=== PATIENT | female | born 1960 | race Caucasian/White ===

== ENCOUNTER 2016-10-22 12:35 | Emergency (ER) | payer SELFPAY ==
[~2016-10-22] VITALS: Ht 170.2 cm; Wt 62.0 kg
[~2016-10-22 12:35] MED LIST: CIPR-9 PO; DULO1CAP2 PO; ESTR1TAB12 PO; HYDR-2768 PO; LISI-366 PO; PRAZ2 PO; TOPA100T8 PO; VITA50TA PO; ZOVI800T13 PO
[2016-10-22 13:02] VITALS: BP 128/81; PULSE 98; RESP 18; TEMP 97.2; O2SAT 95
[2016-10-22 13:47] LABS: AUTOMATED NEUTROPHIL # 2.6 TH/MM3 (1.8-7.7); BASOPHIL % 0.8 % (0.0-2.0); HEMATOCRIT 36.5 % (35.0-46.0); HEMO FLAGS DIFF FINAL; LYMPH % 42.9 % (9.0-44.0); LYMPHOCYTE # 2.1 TH/MM3 (1.0-4.8); MEAN CELL VOLUME 81.1 FL (80.0-100.0); MEAN CORPUSCULAR HEMOGLOBIN 26.6 PG (27.0-34.0); MEAN CORPUSCULAR HGB CONC 32.8 % (32.0-36.0); MONO % 2.8 % (0.0-8.0); NEUT % 53.5 % (16.0-70.0); PLATELET COUNT 234 TH/MM3 (150-450); RED CELL DISTRIBUTION WIDTH 17.6 % (11.6-17.2); WHITE BLOOD COUNT 4.9 TH/MM3 (4.0-11.0)
[2016-10-22 14:04] LABS: ANION GAP 14 MEQ/L (5-15); AST (GOT) 30 U/L (15-37); BLOOD UREA NITROGEN 12 MG/DL (7-18); CHLORIDE 101 MEQ/L (98-107); GLOMERULAR FILTRATION RATE 124 ML/MIN (>89); POTASSIUM 3.8 MEQ/L (3.5-5.1); SODIUM (NA) 137 MEQ/L (136-145)
[2016-10-22 14:10] LABS: ACETAMINOPHEN LESS THAN 2.0 MCG/ML (10.0-30.0); ALKALINE PHOSPHATASE 82 U/L (45-117); ALT (GPT) 23 U/L (10-53); TOTAL BILIRUBIN ADULT 0.5 MG/DL (0.2-1.0)
[2016-10-22] MEDS ORDERED: SODIUM CHLORIDE 0.9% FLUSH 10 ML FLUSH IV FLUSH PRN (14:30)
--- NOTE | 2016-10-22 14:31 | PD ---
HPI Chief Complaint: OD/ Ingestion Time Seen by Provider: 14:28 Travel History International Travel<30 days: No Contact w/Intl Traveler<30days: No Traveled to known affect area: No History of Present Illness HPI Patient comes in emergency Department after reportedly taking approximately 20 Xanax 0.5 mg. Patient is not forthcoming as to why she did this. When asked if she was trying to hurt herself patient states "not really". Patient denies any complaints or concerns. Denies any chest pain, shortness breath, nausea, vomiting, abdominal pain, or headaches. PFSH Past Medical History Arthritis: No Asthma: No Autoimmune Disease: No Blood Disorders: No Anxiety: Yes Depression: Yes Heart Rhythm Problems: No Cancer: No Cardiac Catheterization: Yes (2009) Cardiovascular Problems: Yes (HBP) High Cholesterol: No Chemotherapy: No Chest Pain: No Congestive Heart Failure: No COPD: No Cerebrovascular Accident: No Diabetes: No Diminished Hearing: No Endocrine: No Gastrointestinal Disorders: No GERD: No Glaucoma: No Genitourinary: No Headaches: No Hepatitis: No Hiatal Hernia: No Hypertension: Yes Immune Disorder: No Implanted Vascular Access Dvce: Yes Kidney Stones: No Musculoskeletal: No Neurologic: No Psychiatric: No Reproductive: No Respiratory: No Immunizations Current: Yes Migraines: No Myocardial Infarction: No Radiation Therapy: No Seizures: No Sickle Cell Disease: No Sleep Apnea: No Thyroid Disease: No Ulcer: No Menopausal: Yes : 3 Para: 3 Past Surgical History Abdominal Surgery: No AICD: No Appendectomy: Yes Arteriovenous Shunt: No Body Medical Devices: TITANIUM DEVICE RT. SHOULDER Cardiac Surgery: No Cholecystectomy: No Coronary Artery Bypass Graft: No Ear Surgery: No Endocrine Surgery: No Eye Surgery: No Genitourinary Surgery: No Gynecologic Surgery: Yes (hysterectomy) Hysterectomy: Yes Insulin Pump: No Joint Replacement: No Oral Surgery: No Pacemaker: No Thoracic Surgery: No Tonsillectomy: Yes Other Surgery: Yes (TITANIUM DEVICE R SHOULDER, PAH) Social History Alcohol Use: Yes (DAILY 1 QUART VODKA) Tobacco Use: No Substance Use: No Allergies-Medications (Allergen,Severity, Reaction): Coded Allergies: No Known Allergies (Verified , 10/22/16) Reported Meds & Prescriptions Reported Meds & Active Scripts Active Review of Systems ROS Limitations: Uncooperative Except as stated in HPI: all other systems reviewed are Neg Physical Exam Exam Limitations: Uncooperative Narrative GENERAL: Well-developed, overly nourished, in no acute distress, and non-ill appearing. SKIN: Focused skin assessment warm and dry. HEAD: Atraumatic. Normocephalic. EYES: Pupils equal and round. EOMI. No scleral icterus. No injection or drainage. ENT: No nasal bleeding or discharge. Mucous membranes pink and moist. NECK: Trachea midline. Supple. No nuclear rigidity. CARDIOVASCULAR: Regular rate and rhythm. No murmur appreciated. RESPIRATORY: No accessory muscle use. No respiratory distress. Clear to auscultation. Breath sounds equal bilaterally. GASTROINTESTINAL: Abdomen soft, non-tender, nondistended. Hepatic and splenic margins not palpable. Normal bowel sounds 4. No pulsatile mass. MUSCULOSKELETAL: No obvious deformities. No clubbing. No cyanosis. No edema. Full range of motion. NEUROLOGICAL: Awake and alert. No obvious cranial nerve deficits. Motor grossly within normal limits. Normal speech. PSYCHIATRIC: Appropriate mood and affect; insight and judgment normal. Data Data Last Documented VS Vital Signs Date Time Temp Pulse Resp B/P Pulse Ox O2 Delivery O2 Flow Rate FiO2 10/23/16 06:22 75 18 167/75 95 Room Air 10/22/16 15:16 2 10/22/16 13:02 97.2 Orders Complete Blood Count With Diff (10/22/16 13:24) Comprehensive Metabolic Panel (10/22/16 13:24) Psych Screen (10/22/16 13:24) Drug Screen, Random Urine (10/22/16 13:24) Salicylates (Aspirin) (10/22/16 13:24) Tylenol (Acetaminophen) (10/22/16 13:24) Electrocardiogram (10/22/16 ) Ct Brain W/O Iv Contrast(Rout) (10/22/16 ) Ct Cerv Spine W/O Contrast (10/22/16 ) Iv Access Insert/Monitor (10/22/16 14:26) Ecg Monitoring (10/22/16 14:26) Oximetry (10/22/16 14:26) Sodium Chloride 0.9% Flush (Ns Flush) (10/22/16 14:30) Call Poison Control (10/22/16 14:28) Alcohol (Ethanol) (10/22/16 15:10) Restraints Non-Violent AGNES.Q3H (10/22/16 17:29) Chlordiazepoxide (Librium) (10/22/16 17:45) Diet Regular Basic (10/23/16 Breakfast) Diet Regular Basic (10/23/16 Lunch) Labs Laboratory Tests Test 10/22/16 10/22/16 13:30 23:30 White Blood Count 4.9 TH/MM3 Red Blood Count 4.50 MIL/MM3 Hemoglobin 12.0 GM/DL Hematocrit 36.5 % Mean Corpuscular Volume 81.1 FL Mean Corpuscular Hemoglobin 26.6 PG Mean Corpuscular Hemoglobin 32.8 % Concent Red Cell Distribution Width 17.6 % Platelet Count 234 TH/MM3 Mean Platelet Volume 6.6 FL Neutrophils (%) (Auto) 53.5 % Lymphocytes (%) (Auto) 42.9 % Monocytes (%) (Auto) 2.8 % Eosinophils (%) (Auto) 0.0 % Basophils (%) (Auto) 0.8 % Neutrophils # (Auto) 2.6 TH/MM3 Lymphocytes # (Auto) 2.1 TH/MM3 Monocytes # (Auto) 0.1 TH/MM3 Eosinophils # (Auto) 0.0 TH/MM3 Basophils # (Auto) 0.0 TH/MM3 CBC Comment DIFF FINAL Differential Comment Sodium Level 137 MEQ/L Potassium Level 3.8 MEQ/L Chloride Level 101 MEQ/L Carbon Dioxide Level 22.0 MEQ/L Anion Gap 14 MEQ/L Blood Urea Nitrogen 12 MG/DL Creatinine 0.51 MG/DL Estimat Glomerular Filtration 124 ML/MIN Rate Random Glucose 67 MG/DL Calcium Level 8.2 MG/DL Total Bilirubin 0.5 MG/DL Aspartate Amino Transf 30 U/L (AST/SGOT) Alanine Aminotransferase 23 U/L (ALT/SGPT) Alkaline Phosphatase 82 U/L Total Protein 7.0 GM/DL Albumin 3.6 GM/DL Acetaminophen Level LESS THAN 2.0 MCG/ML Ethyl Alcohol Level 145 MG/DL Urine Opiates Screen NEG Urine Barbiturates Screen NEG Urine Amphetamines Screen NEG Urine Benzodiazepines Screen POS Urine Cocaine Screen NEG Urine Cannabinoids Screen NEG Salicylates Level LESS THAN 1.7 MG/DL MDM Medical Decision Making Medical Screen Exam Complete: Yes Emergency Medical Condition: Yes Interpretation(s) EKG reviewed by Dr. Stout. Shows sinus rhythm with ventricular rate of 93. No STEMI. Differential Diagnosis Homicidal, suicidal, depression, electrolyte abnormality, other Narrative Course Poison control was contacted by RN recommendations are checking labs and monitoring patient in the ER for 6 hours. Due to patient's intentional overdose and history of suicidal ideations along with alcohol abuse patient was placed under a Carvajal act. 1730 re-evaluated patient with Dr. Stout, patient is more alert and now becoming tremulous. Dr. Stout recommends giving patient Librium. Patient was seen and examined. Labs were obtained and reviewed with the exception of urine drug screen. Patient medically cleared for further treatment and evaluation by psych. Final disposition per psych. Diagnosis Primary Impression: Overdose Qualified Code: T50.902A - Overdose, intentional self-harm, initial encounter Additional Impression: Alcohol abuse Eric Isaac Oct 22, 2016 14:30
[2016-10-22 14:52] VITALS: RESP 16; O2SAT 99
[2016-10-22 15:16] VITALS: BP 127/78; PULSE 91; RESP 16; O2SAT 99
--- NOTE | 2016-10-22 15:22 | RADRPT ---
EXAM DATE/TIME: 10/22/2016 15:08 [facility] COMPARISON: CT BRAIN W/O CONTRAST, March 29, 2016, 15:26. INDICATIONS : Possible fall today. RADIATION DOSE: 48.47 CTDIvol (mGy) MEDICAL HISTORY : Hypertension. SURGICAL HISTORY : Hysterectomy. Tonsillectomy. ENCOUNTER: Initial ACUITY: 1 day PAIN SCALE: 0/10 LOCATION: Bilateral head TECHNIQUE: Multiple contiguous axial images were obtained of the head. Using automated exposure control and adj ustment of the mA and/or kV according to patient size, radiation dose was kept as low as reasonably a chievable to obtain optimal diagnostic quality images. FINDINGS: There is no evidence for intracranial hemorrhage, mass effect, mass lesions, edema, or extra-axial fl uid collections. The visualized bony structures appear intact. The ventricles are normal size for t he patient's age. There are no signs of acute infarction for technique. IMPRESSION: Unremarkable study. Chana Lindsay MD on October 22, 2016 at 15:19 Board Certified Radiologist. This report was verified electronically.
--- NOTE | 2016-10-22 15:34 | RADRPT ---
EXAM DATE/TIME: 10/22/2016 15:08 [facility] COMPARISON: No previous studies available for comparison. INDICATIONS : Possible fall today. RADIATION DOSE: 42.83 CTDIvol (mGy) MEDICAL HISTORY : Hypertension. SURGICAL HISTORY : Hysterectomy. Tonsillectomy. ENCOUNTER: Initial ACUITY: 1 day PAIN SCALE: 0/10 LOCATION: Bilateral neck TECHNIQUE: Volumetric scanning of the cervical spine was performed. Multiplanar reconstructions i n the sagittal, coronal and oblique axial planes were performed. Using automated exposure control a nd adjustment of the mA and/or kV according to patient size, radiation dose was kept as low as reason ably achievable to obtain optimal diagnostic quality images. FINDINGS: Alignment: Craniocervical and cervical vertebral body alignment are intact without evidence of significant listh esis. Osseous structures and facet joints: Vertebral body height is well-maintained. There is no evidence of compression deformity. Posterior el ements are intact without evidence of acute fracture or subluxation. Mild facet arthropathy is noted. Intervertebral disc spaces: Mild degenerative disc disease with marginal spondylosis is noted. There is moderate disc space narro wing with posterior disc osteophyte complex at C5-6. No focal soft tissue abnormalities. Neurologic structures: Intact without evidence of spinal cord compression or significant foraminal encroachment. CONCLUSION: Degenerative disc disease with spondylosis. No evidence of acute bony or soft tissue trauma. Ashish Ramos MD on October 22, 2016 at 15:26 Board Certified Radiologist. This report was verified electronically.
[2016-10-22 17:34] VITALS: BP 137/89; PULSE 96; RESP 18; O2SAT 97
--- NOTE | 2016-10-22 18:33 | PD ---
Data Data Last Documented VS Vital Signs Date Time Temp Pulse Resp B/P Pulse Ox O2 Delivery O2 Flow Rate FiO2 10/22/16 17:34 96 18 137/89 97 Room Air 10/22/16 15:16 2 10/22/16 13:02 97.2 Orders Complete Blood Count With Diff (10/22/16 13:24) Comprehensive Metabolic Panel (10/22/16 13:24) Psych Screen (10/22/16 13:24) Drug Screen, Random Urine (10/22/16 13:24) Salicylates (Aspirin) (10/22/16 13:24) Tylenol (Acetaminophen) (10/22/16 13:24) Electrocardiogram (10/22/16 ) Ct Brain W/O Iv Contrast(Rout) (10/22/16 ) Ct Cerv Spine W/O Contrast (10/22/16 ) Iv Access Insert/Monitor (10/22/16 14:26) Ecg Monitoring (10/22/16 14:26) Oximetry (10/22/16 14:26) Sodium Chloride 0.9% Flush (Ns Flush) (10/22/16 14:30) Call Poison Control (10/22/16 14:28) Alcohol (Ethanol) (10/22/16 15:10) Restraints Non-Violent AGNES.Q3H (10/22/16 17:29) Chlordiazepoxide (Librium) (10/22/16 17:45) Labs Laboratory Tests Test 10/22/16 13:30 White Blood Count 4.9 TH/MM3 Red Blood Count 4.50 MIL/MM3 Hemoglobin 12.0 GM/DL Hematocrit 36.5 % Mean Corpuscular Volume 81.1 FL Mean Corpuscular Hemoglobin 26.6 PG Mean Corpuscular Hemoglobin 32.8 % Concent Red Cell Distribution Width 17.6 % Platelet Count 234 TH/MM3 Mean Platelet Volume 6.6 FL Neutrophils (%) (Auto) 53.5 % Lymphocytes (%) (Auto) 42.9 % Monocytes (%) (Auto) 2.8 % Eosinophils (%) (Auto) 0.0 % Basophils (%) (Auto) 0.8 % Neutrophils # (Auto) 2.6 TH/MM3 Lymphocytes # (Auto) 2.1 TH/MM3 Monocytes # (Auto) 0.1 TH/MM3 Eosinophils # (Auto) 0.0 TH/MM3 Basophils # (Auto) 0.0 TH/MM3 CBC Comment DIFF FINAL Differential Comment Sodium Level 137 MEQ/L Potassium Level 3.8 MEQ/L Chloride Level 101 MEQ/L Carbon Dioxide Level 22.0 MEQ/L Anion Gap 14 MEQ/L Blood Urea Nitrogen 12 MG/DL Creatinine 0.51 MG/DL Estimat Glomerular Filtration 124 ML/MIN Rate Random Glucose 67 MG/DL Calcium Level 8.2 MG/DL Total Bilirubin 0.5 MG/DL Aspartate Amino Transf 30 U/L (AST/SGOT) Alanine Aminotransferase 23 U/L (ALT/SGPT) Alkaline Phosphatase 82 U/L Total Protein 7.0 GM/DL Albumin 3.6 GM/DL Acetaminophen Level LESS THAN 2.0 MCG/ML Ethyl Alcohol Level 145 MG/DL MDM Supervised Visit with SHANTELLE: Yes Narrative Course The history, exam, and medical decision-making in the associated midlevel provider note were completed with my assistance. I reviewed and agree with the findings presented. I attest that I had a [id number] encounter with the patient on the same day, and personally performed and documented my assessment and findings in the medical record. *My assessment and Findings: This is a 56-year-old female who has a history of depression, chronic alcoholism and benzodiazepine abuse who presents to the emergency department having taken 20 .5 mg Xanax tablets prior to arrival. We are really know the circumstances of how this was discovered. Patient was placed under a Carvajal act. Labs were all reassuring. She will be monitored until cleared in the emergency department and transferred to psychiatry. Diagnosis Primary Impression: Overdose Qualified Code: T50.902A - Overdose, intentional self-harm, initial encounter Additional Impression: Alcohol abuse Desire Stout MD Oct 22, 2016 18:33
[2016-10-22 19:26] VITALS: BP 146/87; PULSE 90; RESP 20; O2SAT 96
--- NOTE | 2016-10-22 19:32 | EKG ---
Date Performed: 10/22/2016 Time Performed: 15:54:01 PTAGE: 56 years EKG: Sinus rhythm POSSIBLE LEFT ATRIAL ENLARGEMENT INCOMPLETE RIGHT BUNDLE BRANCH BLOCK BORDERLINE ECG INTERPRETATION BASED ON A DEFAULT AGE OF 38 YEARS COMPARED TO PRIOR ELECTROCARDIOGRAM, Incomplete RIGHT bundle branc h block is present. PREVIOUS TRACING : 12/27/2015 10.31 DOCTOR: Derick Bray Interpretating Date/Time 10/22/2016 19:32:23
[2016-10-22 23:50] LABS: AMPHETAMINE, URINE NEG (NEG); BARBITURATES, URINE NEG (NEG); COCAINE, URINE NEG (NEG)
[2016-10-23] MEDS: chlordiazePOXIDE 25 MG CAP PO PRN ×2 (00:15→06:26)
[2016-10-23 02:15] VITALS: BP 150/84; PULSE 98; RESP 18; O2SAT 98
[2016-10-23 06:22] VITALS: BP 167/75; PULSE 75; RESP 18; O2SAT 95
[2016-10-23] MEDS ORDERED: LORazepam 2 MG TAB PO PRN (11:00)
[2016-10-23] MEDS ORDERED: SODIUM CHLOR 0.9% 1000 ML INJ 1,000 ML IV ONE (11:00)
[2016-10-23] MEDS ORDERED: LORazepam 2 MG/ML VIAL IV PUSH PRN ×4 (11:00)
[2016-10-23] MEDS ORDERED: LORazepam 1 MG TAB PO PRN (11:00)
[2016-10-23] MEDS ORDERED: FLUMAZENIL 0.5 MG/5 ML VIAL IV PUSH PRN (11:00)
[2016-10-23 12:19] VITALS: BP 125/67; PULSE 81; RESP 17; O2SAT 97
--- NOTE | 2016-10-23 13:21 | MB ---
cc: RAYMOND MAY DATE OF CONSULTATION 10/23/2016 PHYSICIAN REQUESTING CONSULTATION Emergency Department. REASON FOR CONSULTATION Carvajal Act. HISTORY OF PRESENT ILLNESS Ms. Rosen is a 56-year-old female with a reported history of depression and anxiety as well as alcohol use issues who presented voluntarily after taking ~20 Xanax 0.5 mg tablets in an overdose. The patient's urine toxicology on presentation here was positive only for benzodiazepines. Her alcohol level was elevated at 145. Reviewing the electronic medical record, I note that the patient was admitted most recently under Dr. Soto in June of 2016, although it looks like I did the discharge summary at that time. The patient is seen and examined, Chart reviewed. Case discussed with nursing staff. On my examination today, the patient presents as dysphoric. She is somewhat tearful at times. She says that she has been under a lot of stress. Apparently, her mother is terminally ill and she is quite distressed about this. She denies low mood, but appears fairly anhedonic. She feels overwhelmed. She says that the overdose was impulsive . She denies any ongoing suicidal ideation and says that she wants to live for her family but could not articulate an explanation for what has changed in her circumstance that might prevent her from engaging in ongoing self-injury. No hypomanic or manic symptoms. She denies any audiovisual hallucinations and I can elicit no delusional beliefs. The remainder of the psychiatric ROS is negative. PAST PSYCHIATRIC HISTORY The patient reports psychiatric diagnoses as noted above. She is not currently under the care of a psychiatrist or psychotherapist but is prescribed Cymbalta and Xanax by her primary care doctor. She reports that her most recent psychiatric admission was here in June. She denies a history of previous suicide attempts. FAMILY HISTORY The patient denies any family history of mental illness. CHEMICAL DEPENDENCY HISTORY The patient tends to minimize her alcohol use. She says that she is not a daily drinker. She denies any history of blackouts, DTs or seizures. Reviewing previous toxicology screens, I see that her alcohol level has been significantly elevated since 2007 with only one undetectable level. SOCIAL HISTORY The patient reports that she has been staying with her mother who is terminally ill. She is with three children. 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 She has a twelfth grade education. Denies any or legal history. PAST MEDICAL HISTORY The patient denies any medical issues. REVIEW OF SYSTEMS The patient complains of some tremor but no reported headache, vision or hearing changes, chest pain, shortness of breath, bowel or bladder issues. No other physical complaints. PHYSICAL EXAMINATION VITAL SIGNS: Temperature is 97.2, pulse 75, respirations 18, blood pressure 167/75, pulse oximetry 95% on room air. Physical examination completed by the ED provider. On my examination today, the patient appears to be somewhat disheveled but otherwise well-developed and in no acute physical distress. She is somewhat tremulous but there is no diaphoresis or mydriasis or other signs alcohol withdrawal. No other motor abnormalities noted. LABORATORIES REVIEWED CBC unremarkable. CMP significant for mildly decreased glucose at 67. Toxicology positive for benzos. Alcohol level 145. MENTAL STATUS EXAM The patient is in hospital gown. She is somewhat disheveled but appears to be maintaining her basic hygiene. She is awake and alert and oriented to person and hospital at least. No evidence of delirium at this time. Motor exam as above. Speech is somewhat slow with increased speech latency. Language and fund of knowledge seem average. Mood is reportedly fair but affect is restricted and dysphoric. Thought process slowed but linear. No loosening of associations. No evident delusions. Denies audiovisual hallucinations. Denies ongoing suicidal ideation but it is unclear that the patient is reliable to contract for safety in her present state. No homicidal ideation. Insight and judgment seem poor. 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 This is a 56-year-old female with psychiatric history as detailed above who presented following an overdose of Xanax in conjunction with alcohol. She was placed under Carvajal Act by the ED provider. On my examination today, the patient presents as fairly dysphoric. She tends to minimize her alcohol use and also minimize the circumstances of the overdose. I suspect that the patient is experiencing an underlying mood disorder, perhaps alcohol-induced. I am concerned that there are enough ongoing acute risk factors for self-harm, that the patient is currently at elevated risk for ongoing self injury. I will leave the Carvajal Act in place. The ED provider has provided the patient with Librium as needed for any withdrawal. The patient will be retained in the [facility] under the Carvajal Act with plan for transfer to [facility] once a bed is available. Case discussed with RN in the [facility]. Thank you very much for this consultation. Raymond May DC/EDWAR /10:44 AM /12:50 PM SHARAD
[2016-10-23 17:00] VITALS: BP 168/92; PULSE 88; RESP 16; O2SAT 100
== END 2016-10-23 17:31 ==
LOC: NEPE 12:35 → NEDAMB 10-23 17:31
DX: T42.4X4A Poisoning by benzodiazepines, undetermined, initial encounter (principal); F41.8 Other specified anxiety disorders; I10 Essential (primary) hypertension; F10.10 Alcohol abuse, uncomplicated; F19.90 Other psychoactive substance use, unspecified, uncomplicated; R94.31 Abnormal electrocardiogram [ECG] [EKG]; Y90.6 Blood alcohol level of 120-199 mg/100 ml
CPT/HCPCS: 70450; 72125; 80053; 80307; 85025; 93005; 99285; J7030

== ENCOUNTER 2017-02-26 16:11 | Observation (INO) | payer MEDICARE, OTHER ==
[~2017-02-26] VITALS: Ht 167.6 cm; Wt 72.0 kg
[2017-02-26 16:23] VITALS: BP 132/89; PULSE 122; RESP 18; TEMP 98.4; O2SAT 98
[2017-02-26 16:25] VITALS: RESP 18; O2SAT 98
--- NOTE | 2017-02-26 16:25 | PD ---
HPI Chief Complaint: BA Time Seen by Provider: 16:23 Travel History International Travel<30 days: No Contact w/Intl Traveler<30days: No Traveled to known affect area: No History of Present Illness HPI 56-year-old female with history of hypertension, depression, anxiety, presents to emergency department today after a Carvajal act for attempted suicide by overdose. Patient allegedly contacted the suicide hotline pain she was going to commit suicide. When [facility] arrived, they found a bottle of bupropion at bedside and a bottle of wine. Patient was tearful. Here she is tearful, begging us to "let her ." Patient states she has no family, that they have all and she has been very depressed since her mother . She does not know how many pills she took but states "handfuls." Denies any other symptoms at this time. PFSH Past Medical History Arthritis: No Asthma: No Autoimmune Disease: No Blood Disorders: No Anxiety: Yes Depression: Yes Heart Rhythm Problems: No Cancer: No Cardiac Catheterization: Yes (2009) Cardiovascular Problems: Yes (HBP) High Cholesterol: No Chemotherapy: No Chest Pain: No Congestive Heart Failure: No COPD: No Cerebrovascular Accident: No Diabetes: No Diminished Hearing: No Endocrine: No Gastrointestinal Disorders: No GERD: No Glaucoma: No Genitourinary: No Headaches: No Hepatitis: No Hiatal Hernia: No Hypertension: Yes Immune Disorder: No Implanted Vascular Access Dvce: Yes Kidney Stones: No Musculoskeletal: No Neurologic: No Psychiatric: No Reproductive: No Respiratory: No Immunizations Current: Yes Migraines: No Myocardial Infarction: No Radiation Therapy: No Seizures: No Sickle Cell Disease: No Sleep Apnea: No Thyroid Disease: No Ulcer: No Menopausal: Yes : 3 Para: 3 Past Surgical History Abdominal Surgery: No AICD: No Appendectomy: Yes Arteriovenous Shunt: No Body Medical Devices: TITANIUM DEVICE RT. SHOULDER Cardiac Surgery: No Cholecystectomy: No Coronary Artery Bypass Graft: No Ear Surgery: No Endocrine Surgery: No Eye Surgery: No Genitourinary Surgery: No Gynecologic Surgery: Yes (hysterectomy) Hysterectomy: Yes Insulin Pump: No Joint Replacement: No Oral Surgery: No Pacemaker: No Thoracic Surgery: No Tonsillectomy: Yes Other Surgery: Yes (TITANIUM DEVICE R SHOULDER, PAH) Social History Alcohol Use: Yes (DAILY 1 QUART VODKA) Tobacco Use: No Substance Use: Yes Allergies-Medications (Allergen,Severity, Reaction): Coded Allergies: No Known Allergies (Verified , 02/26/17) Reported Meds & Prescriptions Reported Meds & Active Scripts Active Reported Buspirone (Buspirone HCl) 5 Mg Tab 5 Mg PO BID Trazodone (Trazodone HCl) 100 Mg Tablet 100 Mg PO HS Xanax (Alprazolam) 0.5 Mg Tab 0.5 Mg PO BID Neurontin (Gabapentin) 400 Mg Cap 400 Mg PO BID Estradiol 0.5 Mg Tab 0.5 Mg PO DAILY Mobic (Meloxicam) 15 Mg Tab 15 Mg PO DAILY Cymbalta DR (Duloxetine HCl) 60 Mg Capdr 60 Mg PO BID Hydrochlorothiazide 25 Mg Tab 25 Mg PO DAILY Lisinopril 40 Mg Tab 40 Mg PO DAILY Review of Systems ROS Limitations: Intoxication, Poor Historian Except as stated in HPI: all other systems reviewed are Neg Physical Exam Exam Limitations: Intoxication Narrative GENERAL: Disheveled appearing female patient, tearful, but in no acute distress. SKIN: Focused skin assessment warm/dry. HEAD: Atraumatic. Normocephalic. EYES: Pupils equal and round. No scleral icterus. No injection or drainage. ENT: No nasal bleeding or discharge. Mucous membranes pink and moist. NECK: Trachea midline. No JVD. CARDIOVASCULAR: Tachycardia rate and rhythm. No murmur appreciated. RESPIRATORY: No accessory muscle use. Clear to auscultation. Breath sounds equal bilaterally. GASTROINTESTINAL: Abdomen soft, non-tender, nondistended. Hepatic and splenic margins not palpable. MUSCULOSKELETAL: No obvious deformities. No clubbing. No cyanosis. No edema. NEUROLOGICAL: Awake and alert. I'm unable to accurately assess cranial nerve symptoms time. Patient moves all cherries. Slurred speech. Data Data Last Documented VS Vital Signs Date Time Temp Pulse Resp B/P (MAP) Pulse Ox O2 Delivery O2 Flow Rate FiO2 02/26/17 17:52 97.8 118 17 126/81 (96) 98 Room Air Orders Orders Complete Blood Count With Diff (02/26/17 16:24) Comprehensive Metabolic Panel (02/26/17 16:24) Urinalysis - C+S If Indicated (02/26/17 16:24) Electrocardiogram (02/26/17 16:24) Oximetry (02/26/17 16:24) Iv Access Insert/Monitor (02/26/17 16:24) Ecg Monitoring (02/26/17 16:24) Cath For Specimen (02/26/17 16:24) Psych Screen (02/26/17 16:24) Lorazepam Inj (Ativan Inj) (02/26/17 16:30) Drug Screen, Random Urine (02/26/17 16:24) Alcohol (Ethanol) (02/26/17 16:24) Salicylates (Aspirin) (02/26/17 16:24) Tylenol (Acetaminophen) (02/26/17 16:24) Call Poison Control (02/26/17 16:35) Diet Heart Healthy (02/26/17 Dinner) Vital Signs (Adult) AGNES.Q4H (02/26/17 18:30) Ondansetron Inj (Zofran Inj) (02/26/17 20:00) Neuro Checks . ORDERED (02/26/17 18:30) Consult Psychiatry (02/26/17 ) Admit Order (Ed Use Only) (02/26/17 18:33) Labs Laboratory Tests Test 02/26/17 16:25 02/26/17 16:30 Blood Urea Nitrogen 9 MG/DL Creatinine 0.76 MG/DL Random Glucose 151 MG/DL Total Protein 7.9 GM/DL Albumin 4.0 GM/DL Calcium Level 9.0 MG/DL Alkaline Phosphatase 131 U/L Aspartate Amino Transf (AST/SGOT) 61 U/L Alanine Aminotransferase (ALT/SGPT) 42 U/L Total Bilirubin 0.3 MG/DL Sodium Level 146 MEQ/L Potassium Level 3.5 MEQ/L Chloride Level 107 MEQ/L Carbon Dioxide Level 25.4 MEQ/L Anion Gap 14 MEQ/L Estimat Glomerular Filtration Rate 78 ML/MIN Acetaminophen Level LESS THAN 2.0 MCG/ML Ethyl Alcohol Level 307 MG/DL White Blood Count 5.5 TH/MM3 Red Blood Count 4.66 MIL/MM3 Hemoglobin 13.4 GM/DL Hematocrit 41.1 % Mean Corpuscular Volume 88.4 FL Mean Corpuscular Hemoglobin 28.7 PG Mean Corpuscular Hemoglobin Concent 32.5 % Red Cell Distribution Width 17.8 % Platelet Count 272 TH/MM3 Mean Platelet Volume 7.2 FL Neutrophils (%) (Auto) 43.8 % Lymphocytes (%) (Auto) 50.5 % Monocytes (%) (Auto) 4.9 % Eosinophils (%) (Auto) 0.1 % Basophils (%) (Auto) 0.7 % Neutrophils # (Auto) 2.4 TH/MM3 Lymphocytes # (Auto) 2.8 TH/MM3 Monocytes # (Auto) 0.3 TH/MM3 Eosinophils # (Auto) 0.0 TH/MM3 Basophils # (Auto) 0.0 TH/MM3 CBC Comment DIFF FINAL Differential Comment Urine Color LIGHT-YELLOW Urine Turbidity CLEAR Urine pH 5.5 Urine Specific [place] 1.006 Urine Protein NEG mg/dL Urine Glucose (UA) NEG mg/dL Urine Ketones NEG mg/dL Urine Occult Blood NEG Urine Nitrite NEG Urine Bilirubin NEG Urine Urobilinogen LESS THAN 2.0 MG/DL Urine Leukocyte Esterase NEG Urine RBC LESS THAN 1 /hpf Urine WBC LESS THAN 1 /hpf Urine Squamous Epithelial Cells <1 /hpf Microscopic Urinalysis Comment CULT NOT INDICATED Salicylates Level 3.0 MG/DL Urine Opiates Screen NEG Urine Barbiturates Screen NEG Urine Amphetamines Screen NEG Urine Benzodiazepines Screen NEG Urine Cocaine Screen NEG Urine Cannabinoids Screen NEG MDM Medical Decision Making Medical Screen Exam Complete: Yes Emergency Medical Condition: Yes Medical Record Reviewed: Yes Differential Diagnosis Intoxication versus polysubstance abuse versus intentional overdose versus mood disorder versus personality disorder versus adjustment reaction disorder Narrative Course 56 year-old female presents to the emergency department for evaluation under a Carvajal act following an intentional overdose. Lab work and EKG has been ordered per the recommendation, however they do recommend activated charcoal but due to patient's intoxication, we will not administer this due to risk of aspiration. I have discussed plan with my attending physician, who is in agreement. Laboratory Tests Test 02/26/17 16:25 02/26/17 16:30 Blood Urea Nitrogen 9 MG/DL Creatinine 0.76 MG/DL Random Glucose 151 MG/DL Total Protein 7.9 GM/DL Albumin 4.0 GM/DL Calcium Level 9.0 MG/DL Alkaline Phosphatase 131 U/L Aspartate Amino Transf (AST/SGOT) 61 U/L Alanine Aminotransferase (ALT/SGPT) 42 U/L Total Bilirubin 0.3 MG/DL Sodium Level 146 MEQ/L Potassium Level 3.5 MEQ/L Chloride Level 107 MEQ/L Carbon Dioxide Level 25.4 MEQ/L Anion Gap 14 MEQ/L Estimat Glomerular Filtration Rate 78 ML/MIN Acetaminophen Level LESS THAN 2.0 MCG/ML Ethyl Alcohol Level 307 MG/DL White Blood Count 5.5 TH/MM3 Red Blood Count 4.66 MIL/MM3 Hemoglobin 13.4 GM/DL Hematocrit 41.1 % Mean Corpuscular Volume 88.4 FL Mean Corpuscular Hemoglobin 28.7 PG Mean Corpuscular Hemoglobin Concent 32.5 % Red Cell Distribution Width 17.8 % Platelet Count 272 TH/MM3 Mean Platelet Volume 7.2 FL Neutrophils (%) (Auto) 43.8 % Lymphocytes (%) (Auto) 50.5 % Monocytes (%) (Auto) 4.9 % Eosinophils (%) (Auto) 0.1 % Basophils (%) (Auto) 0.7 % Neutrophils # (Auto) 2.4 TH/MM3 Lymphocytes # (Auto) 2.8 TH/MM3 Monocytes # (Auto) 0.3 TH/MM3 Eosinophils # (Auto) 0.0 TH/MM3 Basophils # (Auto) 0.0 TH/MM3 CBC Comment DIFF FINAL Differential Comment Urine Color LIGHT-YELLOW Urine Turbidity CLEAR Urine pH 5.5 Urine Specific [place] 1.006 Urine Protein NEG mg/dL Urine Glucose (UA) NEG mg/dL Urine Ketones NEG mg/dL Urine Occult Blood NEG Urine Nitrite NEG Urine Bilirubin NEG Urine Urobilinogen LESS THAN 2.0 MG/DL Urine Leukocyte Esterase NEG Urine RBC LESS THAN 1 /hpf Urine WBC LESS THAN 1 /hpf Urine Squamous Epithelial Cells <1 /hpf Microscopic Urinalysis Comment CULT NOT INDICATED Salicylates Level 3.0 MG/DL Urine Opiates Screen NEG Urine Barbiturates Screen NEG Urine Amphetamines Screen NEG Urine Benzodiazepines Screen NEG Urine Cocaine Screen NEG Urine Cannabinoids Screen NEG I discussed the patient my attending. Patient will be admitted observation with a consult to psychiatry. She is under a Carvajal act. Diagnosis Primary Impression: Overdose Qualified Codes: T50.902A - Poisoning by unspecified drugs, medicaments and biological substances, intentional self-harm, initial encounter Additional Impressions: Alcohol abuse with alcohol-induced mood disorder Tachycardia Admitting Information Admitting Physician Requests: Observation Condition: Stable Maki Moore Feb 26, 2017 16:25
[2017-02-26] MEDS ORDERED: LORazepam 2 MG/ML VIAL IV ONE (16:30)
[2017-02-26 17:15] LABS: AUTOMATED NEUTROPHIL # 2.4 TH/MM3 (1.8-7.7); BASOPHIL % 0.7 % (0.0-2.0); EOSINOPHIL % 0.1 % (0.0-4.0); HEMATOCRIT 41.1 % (35.0-46.0); HEMO FLAGS DIFF FINAL; LYMPH % 50.5 % (9.0-44.0); LYMPHOCYTE # 2.8 TH/MM3 (1.0-4.8); MEAN CELL VOLUME 88.4 FL (80.0-100.0); MEAN CORPUSCULAR HEMOGLOBIN 28.7 PG (27.0-34.0); MEAN CORPUSCULAR HGB CONC 32.5 % (32.0-36.0); MONO % 4.9 % (0.0-8.0); NEUT % 43.8 % (16.0-70.0); PLATELET COUNT 272 TH/MM3 (150-450); RED BLOOD COUNT 4.66 MIL/MM3 (4.00-5.30); RED CELL DISTRIBUTION WIDTH 17.8 % (11.6-17.2); WHITE BLOOD COUNT 5.5 TH/MM3 (4.0-11.0)
[2017-02-26 17:16] LABS: BLOOD, URINE NEG (NEG); GLUCOSE,URINE NEG (NEG); KETONE, URINE NEG (NEG); NITRITE,URINE NEG (NEG); PH, URINE 5.5 (5.0-8.5); SQUAMOUS EPITHELIAL CELL URINE <1 /hpf (0-5); URINE COLOR LIGHT-YELLOW (YELLW/STRAW)
[2017-02-26 17:19] LABS: COMMENT (UR) CULT NOT INDICATED; CULTURE IF INDICATED CULT NOT INDICATED
[2017-02-26] MEDS ORDERED: ESTR0.5T PO (17:23)
[2017-02-26] MEDS ORDERED: MOBI15TA PO (17:23)
[2017-02-26] MEDS ORDERED: HYDR25TA5 PO (17:23)
[2017-02-26] MEDS ORDERED: CYMB60CA PO (17:23)
[2017-02-26] MEDS ORDERED: LISI40TA PO (17:23)
[2017-02-26] MEDS ORDERED: ALPR.5 PO (17:24)
[2017-02-26] MEDS ORDERED: NEUR400C PO (17:24)
[2017-02-26] MEDS ORDERED: BUSP5TAB PO (17:32)
[2017-02-26] MEDS ORDERED: TRAZ100T6 PO (17:32)
[2017-02-26 17:34] LABS: ALT (GPT) 42 U/L (10-53); ANION GAP 14 MEQ/L (5-15); AST (GOT) 61 U/L (15-37); BICARBONATE 25.4 MEQ/L (21.0-32.0); BLOOD UREA NITROGEN 9 MG/DL (7-18); CHLORIDE 107 MEQ/L (98-107); GLOMERULAR FILTRATION RATE 78 ML/MIN (>89); POTASSIUM 3.5 MEQ/L (3.5-5.1); SODIUM (NA) 146 MEQ/L (136-145)
[2017-02-26 17:35] LABS: ACETAMINOPHEN LESS THAN 2.0 MCG/ML (10.0-30.0)
[2017-02-26 17:44] LABS: ALKALINE PHOSPHATASE 131 U/L (45-117); TOTAL BILIRUBIN ADULT 0.3 MG/DL (0.2-1.0)
[2017-02-26 17:52] VITALS: BP 126/81; PULSE 118; RESP 17; TEMP 97.8; O2SAT 98
[2017-02-26 18:12] LABS: ALCOHOL 307 MG/DL (0-5)
[2017-02-26] MEDS ORDERED: ONDANSETRON HCL 4 MG/2 ML VIAL IV PUSH PRN (20:00)
[2017-02-26] MEDS ORDERED: LORazepam 2 MG/ML VIAL IV PUSH ONE (20:30)
[2017-02-26 20:57] VITALS: BP 118/78
[2017-02-26] MEDS: SODIUM CHLOR 0.9% 1000 ML INJ 1,000 ML IV SCH (21:37)
[2017-02-26 21:38] VITALS: BP 145/83; PULSE 93; RESP 21; TEMP 96.8; O2SAT 98
[2017-02-26 22:57] VITALS: BP 123/68; PULSE 99; RESP 18; TEMP 98.3; O2SAT 98
[2017-02-27] VITALS (10 sets, daily range): BP systolic 112–222; BP diastolic 70–99; PULSE 77–104; RESP 16–20; TEMP 97.6–98.6; O2SAT 96–99
--- NOTE | 2017-02-27 07:05 | HHI.HP ---
HPI Service [facility] Primary Care Physician Unknown Admission Diagnosis intentional SSRI overdose; alcohol intoxication; CARVAJAL ACT Diagnoses: Travel History International Travel<30 Days: No Contact w/Intl Traveler <30 Da: No Traveled to Known Affected Are: No History of Present Illness was drinking eoth and called [facility] while talking to them, they thought she would hurt herself was crying on the floor was at rehab for etoh abuse- was out since december have been drinking 2 weeks or so has buspar with her and ems said she took half bottle- but pt denies- states meds were needed to be refilled sated took couple- two a day thinks maybe her ex boyfriend who was visiting might have taken no problem in er , no charcoal given Past Family Social History Past Medical History htn high LFTs- but states US was normal Past Surgical History colon tumor- removed, benign left shoulder sx- orif tonsilectomy partial hysterectomy Allergies: Coded Allergies: No Known Allergies (Verified , 02/26/17) Family History mom- heart problems, had cdiff brother- heart problems, young Social History never smokes used to drink etoh, quit 6 months and restarted 2 weeks ago no drugs Physical Exam Vital Signs Vital Signs Date Time Temp Pulse Resp B/P (MAP) Pulse Ox O2 Delivery O2 Flow Rate FiO2 02/27/17 05:09 97.6 78 20 172/83 (112) 99 02/27/17 03:53 97 02/27/17 00:05 94 02/26/17 22:57 98.3 99 18 123/68 (86) 98 02/26/17 21:38 96.8 93 21 145/83 (103) 98 02/26/17 20:57 120 18 118/78 (91) 99 02/26/17 17:52 97.8 118 17 126/81 (96) 98 Room Air 02/26/17 16:25 18 98 Room Air 02/26/17 16:24 122 18 02/26/17 16:23 98.4 122 18 132/89 (103) 98 Physical Exam GENERAL: This is a well-nourished, well-developed patient, in no apparent distress. SKIN: No rashes, ecchymoses or lesions. Cool and dry. HEAD: Atraumatic. Normocephalic. No temporal or scalp tenderness. EYES: No scleral icterus. No injection or drainage. ENT: Nose without bleeding, purulent drainage or septal hematoma.. Airway patent. NECK: Trachea midline. No JVD CARDIOVASCULAR: Regular rate and rhythm without murmurs, gallops, or rubs. RESPIRATORY: Clear to auscultation. Breath sounds equal bilaterally. No wheezes , rales, or rhonchi. GASTROINTESTINAL: Abdomen soft, non-tender, nondistended. No guarding. MUSCULOSKELETAL: Extremities without clubbing, cyanosis, or edema. No calf tenderness. NEUROLOGICAL: Awake and alert. Motor and sensory grossly within normal limits. Normal speech. Laboratory Laboratory Tests Test 02/26/17 16:25 02/26/17 16:30 Blood Urea Nitrogen 9 Creatinine 0.76 Random Glucose 151 Total Protein 7.9 Albumin 4.0 Calcium Level 9.0 Alkaline Phosphatase 131 Aspartate Amino Transf (AST/SGOT) 61 Alanine Aminotransferase (ALT/SGPT) 42 Total Bilirubin 0.3 Sodium Level 146 Potassium Level 3.5 Chloride Level 107 Carbon Dioxide Level 25.4 Anion Gap 14 Estimat Glomerular Filtration Rate 78 Acetaminophen Level LESS THAN 2.0 Ethyl Alcohol Level 307 White Blood Count 5.5 Red Blood Count 4.66 Hemoglobin 13.4 Hematocrit 41.1 Mean Corpuscular Volume 88.4 Mean Corpuscular Hemoglobin 28.7 Mean Corpuscular Hemoglobin Concent 32.5 Red Cell Distribution Width 17.8 Platelet Count 272 Mean Platelet Volume 7.2 Neutrophils (%) (Auto) 43.8 Lymphocytes (%) (Auto) 50.5 Monocytes (%) (Auto) 4.9 Eosinophils (%) (Auto) 0.1 Basophils (%) (Auto) 0.7 Neutrophils # (Auto) 2.4 Lymphocytes # (Auto) 2.8 Monocytes # (Auto) 0.3 Eosinophils # (Auto) 0.0 Basophils # (Auto) 0.0 CBC Comment DIFF FINAL Differential Comment Urine Color LIGHT-YELLOW Urine Turbidity CLEAR Urine pH 5.5 Urine Specific [place] 1.006 Urine Protein NEG Urine Glucose (UA) NEG Urine Ketones NEG Urine Occult Blood NEG Urine Nitrite NEG Urine Bilirubin NEG Urine Urobilinogen LESS THAN 2.0 Urine Leukocyte Esterase NEG Urine RBC LESS THAN 1 Urine WBC LESS THAN 1 Urine Squamous Epithelial Cells <1 Microscopic Urinalysis Comment CULT NOT INDICATED Salicylates Level 3.0 Urine Opiates Screen NEG Urine Barbiturates Screen NEG Urine Amphetamines Screen NEG Urine Benzodiazepines Screen NEG Urine Cocaine Screen NEG Urine Cannabinoids Screen NEG Result Diagram: 02/26/17 1630 02/26/17 1625 Caprini VTE Risk Assessment Caprini VTE Risk Assessment: No/Low Risk (score <= 1) Caprini Risk Assessment Model Point Value = 1 Point Value = 2 Point Value = 3 Point Value = 5 Age 41-60 Minor surgery BMI > 25 kg/m2 Swollen legs Varicose veins or History of unexplained or recurrent spontaneous Oral contraceptives or hormone replacement Sepsis (< 1 month) Serious lung disease, including pneumonia (< 1 month) Abnormal pulmonary function Acute myocardial infarction Congestive heart failure (< 1 month) History of inflammatory bowel disease Medical patient at bed rest Age 61-74 Arthroscopic surgery Major open surgery (> 45 min) Laparoscopic surgery (> 45 min) Malignancy Confined to bed (> 72 hours) Immobilizing plaster cast Central venous access Age >= 75 History of VTE Family history of VTE Factor V Leiden Prothrombin [id number] Lupus anticoagulant Anticardiolipin antibodies Elevated serum homocysteine Heparin-induced thrombocytopenia Other congenital or acquired thrombophilia Stroke (< 1 month) Elective arthroplasty Hip, pelvis, or leg fracture Acute spinal cord injury (< 1 month) Prophylaxis Regimen Total Risk Factor Score Risk Level Prophylaxis Regimen 0-1 Low Early ambulation 2 Moderate Order ONE of the following: *Sequential Compression Device (SCD) *Heparin 5000 units SQ BID 3-4 Higher Order ONE of the following medications: *Heparin 5000 units SQ TID *Enoxaparin/Lovenox 40 mg SQ daily (WT < 150 kg, CrCl > 30 mL/min) *Enoxaparin/Lovenox 30 mg SQ daily (WT < 150 kg, CrCl > 10-29 mL/min) *Enoxaparin/Lovenox 30 mg SQ BID (WT < 150 kg, CrCl > 30 mL/min) AND/OR *Sequential Compression Device (SCD) 5 or more Highest Order ONE of the following medications: *Heparin 5000 units SQ TID (Preferred with Epidurals) *Enoxaparin/Lovenox 40 mg SQ daily (WT < 150 kg, CrCl > 30 mL/min) *Enoxaparin/Lovenox 30 mg SQ daily (WT < 150 kg, CrCl > 10-29 mL/min) *Enoxaparin/Lovenox 30 mg SQ BID (WT < 150 kg, CrCl > 30 mL/min) AND *Sequential Compression Device (SCD) Assessment and Plan Assessment and Plan Impression: Alcohol abuse Possible drug. Bupropion and alcohol Possible suicidal attempt- EMS report. Patient denies suicidal or homicidal ideation. History of hypertension History of depression Herpetic lesions at upper lips Plan: Patient was monitored on telemetry overnight for more than 12 hours. There is no event overnight. Apply acyclovir ointment for her hepatic lesions. Resume home meds per med rec. Hold BuSpar. Psychiatry was consulted. Patient's is under Carvajal act, with a sitter. Patient is medically cleared for discharge to inpatient psychiatry unit. If patient is cleared by psychiatry to be discharged home, she is also medically cleared to be discharged home. Nursing staff informed. Discussed Condition With patient, nursing staff Viral Pavon MD Feb 27, 2017 07:05
[2017-02-27] MEDS ORDERED: PILL SPLITTER OTHER PRN (07:45)
[2017-02-27] MEDS: ALPRAZolam 0.5 MG TAB PO SCH ×2 (09:37→20:46)
[2017-02-27] MEDS: HYDROCHLOROTHIAZIDE 25 MG TAB PO SCH (09:38)
[2017-02-27] MEDS: DULoxetine HCl DR 60 MG CAP PO SCH ×2 (09:38→20:46)
[2017-02-27] MEDS: LISINOPRIL 20 MG TAB PO SCH (09:38)
[2017-02-27] MEDS: GABAPENTIN 400 MG CAP PO SCH ×2 (09:39→20:46)
[2017-02-27] MEDS: SODIUM CHLOR 0.9% 1000 ML INJ 1,000 ML IV SCH (09:39)
[2017-02-27] MEDS: ESTRADIOL 1 MG TAB PO SCH (10:15)
[2017-02-27] MEDS: ACYCLOVIR 5% OINT 5 APPLIC/5 GM TUBE TOPICAL SCH ×4 (10:16→20:48)
[2017-02-27] MEDS ORDERED: cloNIDine HCL 0.1 MG TAB PO PRN (11:30)
--- NOTE | 2017-02-27 18:00 | PD ---
History of Present Illness Chief Complaint: Psychiatric Symptoms Time Seen by Provider: 11:00 Travel History International Travel<30 Days: No Contact w/Intl Traveler<30days: No Known affected area: No Legal Status Legal Status: Carvajal Act History of Present Illness: 56-year-old female who drank a bottle of wine and overdosed on Wellbutrin. She was Carvajal acted by law enforcement. According to the Carvajal act, the patient indicated she has been depressed since her mother . Patient also reportedly told the emergency room physician to "let her ". She describes multiple symptoms of depression including depressed mood, anhedonia, decreased Energy, sleep and appetite disturbance, low self-esteem, suicidal ideation with attempt, etc. the patient is now begging this physician to release her but she has a history of previous suicide attempts and appears to have significantly diminished insight and judgment. PFSH Past Medical History Arthritis: No Asthma: No Autoimmune Disease: No Blood Disorders: No Anxiety: Yes Depression: Yes Heart Rhythm Problems: No Cancer: No Cardiac Catheterization: Yes (2009) Cardiovascular Problems: Yes (HBP) High Cholesterol: No Chemotherapy: No Chest Pain: No Congestive Heart Failure: No COPD: No Cerebrovascular Accident: No Diabetes: No Diminished Hearing: No Endocrine: No Gastrointestinal Disorders: No GERD: No Glaucoma: No Genitourinary: No Headaches: No Hepatitis: No Hiatal Hernia: No Hypertension: Yes Immune Disorder: No Implanted Vascular Access Dvce: Yes Kidney Stones: No Musculoskeletal: No Neurologic: No Psychiatric: No Reproductive: No Respiratory: No Immunizations Current: Yes Migraines: No Myocardial Infarction: No Radiation Therapy: No Seizures: No Sickle Cell Disease: No Sleep Apnea: No Thyroid Disease: No Ulcer: No Menopausal: Yes : 3 Para: 3 Past Surgical History Abdominal Surgery: No AICD: No Appendectomy: Yes Arteriovenous Shunt: No Body Medical Devices: TITANIUM DEVICE RT. SHOULDER Cardiac Surgery: No Cholecystectomy: No Coronary Artery Bypass Graft: No Ear Surgery: No Endocrine Surgery: No Eye Surgery: No Genitourinary Surgery: No Gynecologic Surgery: Yes (hysterectomy) Hysterectomy: Yes Insulin Pump: No Joint Replacement: No Oral Surgery: No Pacemaker: No Thoracic Surgery: No Tonsillectomy: Yes Other Surgery: Yes (TITANIUM DEVICE R SHOULDER, PAH) Psychiatric History Psychiatric History Hx Psychiatric Treatment: Hx treatment with Cymbalta. Patient has significant ETOH Abuse Hx. She is seen between 150-arelis and as high as 330-arelis (BAL of 435 resulted in 2008). 10/23/2016 - [facility] RN, advised that their records indicated that this patient's brother and sister have both committed suicide. History of Inpatient Treatment: No Guns or firearms in home: No Social History Hx Alcohol Use: Yes (DAILY 1 QUART VODKA) Hx Tobacco Use: No Hx Substance Use: No Substance Use Type: Alcohol, Nicotine/Cigarettes, Benzos (Valium,Xanax) Hx of Substance Use Treatment: Yes Allergies-Medications (Allergen,Severity, Reaction): Coded Allergies: No Known Allergies (Verified , 02/26/17) Reported Meds & Prescriptions Reported Meds & Active Scripts Active Reported Buspirone (Buspirone HCl) 5 Mg Tab 5 Mg PO BID Trazodone (Trazodone HCl) 100 Mg Tablet 100 Mg PO HS Xanax (Alprazolam) 0.5 Mg Tab 0.5 Mg PO BID Neurontin (Gabapentin) 400 Mg Cap 400 Mg PO BID Estradiol 0.5 Mg Tab 0.5 Mg PO DAILY Mobic (Meloxicam) 15 Mg Tab 15 Mg PO DAILY Cymbalta DR (Duloxetine HCl) 60 Mg Capdr 60 Mg PO BID Hydrochlorothiazide 25 Mg Tab 25 Mg PO DAILY Lisinopril 40 Mg Tab 40 Mg PO DAILY Review of Systems Except as stated in HPI: all other systems reviewed are Neg Exam Alert: Yes [place]: Person, Place, Date, Situation Mood: Agitated, Depressed Affect: Labile Speech: Clear Eye Contact: Indirect Memory Intact: Immediate, Recent Suicidal: Intent, Plan, Ideation Insight/Judgement Impaired MDM Medical Decision Making Medical Record Reviewed: Yes Assessment/Plan Patient's medical record was reviewed and the case was discussed with the patient's nurse. Patient is recognized by one of our nurses. Apparently she has been treated here before at [facility]. However at this time she does not have any confirmable insurance. Although she wants to go home, this physician feels she remains a danger to herself. Because of her alcohol abuse history and her recent suicide attempt, this physician feels the patient should be treated at Located within [facility]. Orders Orders Diet Heart Healthy (02/26/17 Dinner) Vital Signs (Adult) AGNES.Q4H (02/26/17 18:30) Ondansetron Inj (Zofran Inj) (02/26/17 20:00) Neuro Checks . ORDERED (02/26/17 18:30) Consult Psychiatry (02/26/17 ) Admit Order (Ed Use Only) (02/26/17 18:33) (Hub Use Only)Inp Phy Cons/Ref (02/26/17 ) Chief Controller Station / Telemetry AGNES.Q8H (02/26/17 19:36) Activity Bed Rest (02/26/17 19:36) ^ Sitter (02/26/17 19:36) Lorazepam Inj (Ativan Inj) (02/26/17 20:30) ^ Seizure Precautions (02/26/17 21:09) Sodium Chlor 0.9% 1000 Ml Inj (Ns 1000 M (02/26/17 21:15) Physician Name Changes (02/27/17 ) Acyclovir 5% Oint (5 Gm) (Zovirax 5% Oin (02/27/17 10:00) Alprazolam (Xanax) (02/27/17 09:00) Duloxetine (Chao Bryan) (02/27/17 09:00) Estradiol (Estradiol) (02/27/17 09:00) Gabapentin (Neurontin) (02/27/17 09:00) Hydrochlorothiazide (Hydrodiuril) (02/27/17 09:00) Lisinopril (Prinivil) (02/27/17 09:00) Trazodone (Desyrel) (02/27/17 21:00) Pill Splitter (Pill Splitter) (02/27/17 07:45) Clonidine (Catapres) (02/27/17 11:30) Attending Discharge Order (02/27/17 ) Results Vital Signs Date Time Temp Pulse Resp B/P (MAP) Pulse Ox O2 Delivery O2 Flow Rate FiO2 02/27/17 15:28 98.5 84 20 165/90 (115) 97 02/27/17 15:00 88 02/27/17 12:33 142/82 (102) 02/27/17 11:20 98.6 99 18 96 02/27/17 08:56 97.6 77 20 182/99 (126) 98 02/27/17 05:09 97.6 78 20 172/83 (112) 99 02/27/17 03:53 97 02/27/17 00:05 94 02/26/17 22:57 98.3 99 18 123/68 (86) 98 02/26/17 21:38 96.8 93 21 145/83 (103) 98 02/26/17 20:57 120 18 118/78 (91) 99 02/26/17 17:52 97.8 118 17 126/81 (96) 98 Room Air Diagnosis Primary Impression: Adjustment disorder with mixed disturbance of emotions and conduct Additional Impression: Alcohol abuse Condition: Stable Problem Qualifiers Simon Cuello MD Feb 27, 2017 18:00
--- NOTE | 2017-02-27 19:54 | EKG ---
Date Performed: 02/26/2017 Time Performed: 16:39:53 PTAGE: 56 years EKG: SINUS TACHYCARDIA ABNORMAL RHYTHM ECG PREVIOUS TRACING : 10/22/2016 15.54 Compared to the previous tracing rate faster DOCTOR: Sloan Wilson Interpretating Date/Time 02/27/2017 19:52:42
[2017-02-27] MEDS ORDERED: traZODone HCL 100 MG TAB PO SCH (21:00)
[2017-02-28 03:46] VITALS: BP 101/63; PULSE 99; RESP 18; TEMP 98.1; O2SAT 93
[2017-02-28] MEDS: ACYCLOVIR 5% OINT 5 APPLIC/5 GM TUBE TOPICAL SCH ×2 (06:18→09:16)
[2017-02-28 07:00] VITALS: PULSE 91
[2017-02-28 07:41] VITALS: BP 143/86; PULSE 93; RESP 20; TEMP 98.6; O2SAT 97
[2017-02-28] MEDS ORDERED: ACYC5OIN4 TOPICAL (09:07)
--- NOTE | 2017-02-28 09:12 | HHI.PR ---
Subjective Remarks Follow-up for suicidal overdose. The patient was medically clear for discharge yesterday morning. The patient has no acute complaints today. She reports acyclovir ointment has been helping her lip lesions. Psychiatry recommended inpatient psychiatric treatment at [facility]. The patient is asking to go to [facility] for treatment under her insurance. Discussed with case management. Objective Vitals Vital Signs Date Time Temp Pulse Resp B/P (MAP) Pulse Ox O2 Delivery O2 Flow Rate FiO2 02/28/17 07:41 98.6 93 20 143/86 (105) 97 02/28/17 07:00 91 02/28/17 03:46 98.1 99 18 101/63 (76) 93 02/27/17 23:37 98.2 104 16 112/70 (84) 96 02/27/17 19:49 97.8 90 20 167/93 (117) 99 02/27/17 15:28 98.5 84 20 165/90 (115) 97 02/27/17 15:00 88 02/27/17 12:33 142/82 (102) 02/27/17 11:20 98.6 99 18 96 I/O 02/27/17 02/27/17 02/27/17 02/28/17 02/28/17 02/28/17 07:00 15:00 23:00 07:00 15:00 23:00 Intake Total 200 ml Balance 200 ml Intake Oral 200 ml # Voids 1 Result Diagram: 02/26/17 1630 02/26/17 1625 Objective Remarks GENERAL: Well-developed well-nourished. In no acute distress. SKIN: Warm and dry. Herpetic lip lesions, crusting and healing HEENT: Normocephalic. Pupils equal and round. Mucous membranes pink and moist. CARDIOVASCULAR: Regular rate and rhythm. No murmur appreciated. RESPIRATORY: No accessory muscle use. Clear to auscultation. Breath sounds equal bilaterally. GASTROINTESTINAL: Abdomen soft, non-tender, nondistended. Bowel sounds x4. MUSCULOSKELETAL: No obvious deformities. No clubbing or cyanosis. No edema. NEUROLOGICAL: Awake and alert. No focal neurological deficits. Moves upper and lower extremities spontaneously. Normal speech. PSYCHIATRIC: Agitated mood and affect; insight and judgment fair to normal. A/P Assessment and Plan 56-year-old female with a past medical history of depression and alcohol abuse who presented for probable overdose Suicidal overdose with alcohol and bupropion: Under Carvajal act. The patient remains medically cleared for discharge. Psychiatry consulted, recommends inpatient psychiatric treatment. Case management consulted for assistance with transfer to psychiatric facility. Holding BuSpar. Monitor on telemetry. Sitter. Herpetic lip lesions: Continue acyclovir cream. Hypertension: Chronic. BP well-controlled on current home medications. DVT prophylaxis: SCDs Discharge Planning The patient is medically cleared and discharged waiting transfer to inpatient psychiatric care under Carvajal act. Chandan Forrester Feb 28, 2017 09:12
[2017-02-28] MEDS: ALPRAZolam 0.5 MG TAB PO SCH (09:15)
[2017-02-28] MEDS: DULoxetine HCl DR 60 MG CAP PO SCH (09:15)
[2017-02-28] MEDS: LISINOPRIL 20 MG TAB PO SCH (09:15)
[2017-02-28] MEDS: ESTRADIOL 1 MG TAB PO SCH (09:15)
[2017-02-28] MEDS: HYDROCHLOROTHIAZIDE 25 MG TAB PO SCH (09:16)
[2017-02-28] MEDS: GABAPENTIN 400 MG CAP PO SCH (09:16)
[2017-02-28 11:28] VITALS: BP 107/67; PULSE 114; RESP 21; TEMP 98.8; O2SAT 95
== END 2017-02-28 14:50 ==
LOC: NEPE 16:11 → NEDA 18:35 → NEPHCDU 21:21
PROVIDERS: ADMIT Family Medicine; ATTEND Family Medicine
DX: T43.222A Poisoning by selective serotonin reuptake inhibitors, intentional self-harm, initial encounter (principal); R00.0 Tachycardia, unspecified; T43.291A Poisoning by other antidepressants, accidental (unintentional), initial encounter; T51.0X1A Toxic effect of ethanol, accidental (unintentional), initial encounter; I10 Essential (primary) hypertension; F43.25 Adjustment disorder with mixed disturbance of emotions and conduct; F10.14 Alcohol abuse with alcohol-induced mood disorder; F10.129 Alcohol abuse with intoxication, unspecified
CPT/HCPCS: 51703; 80053; 80307; 81001; 85025; 93005; 96361; 96374; 96376; 99285; G0378; J2060; J7030

== ENCOUNTER 2017-05-08 04:53 | Inpatient (IN) | payer OTHER ==
[~2017-05-08] VITALS: Ht 170.2 cm; Wt 68.5 kg
[~2017-05-08 04:53] MED LIST changes: +ACYC5OIN4 TOPICAL; +ALPR.5 PO; -CIPR-9 PO; +CYMB60CA PO; -DULO1CAP2 PO; +ESTR0.5T PO; -ESTR1TAB12 PO; -HYDR-2768 PO; +HYDR25TA5 PO; -LISI-366 PO; +LISI40TA PO; +MOBI15TA PO; +NEUR400C PO; -PRAZ2 PO; -TOPA100T8 PO; +TRAZ100T6 PO; -VITA50TA PO; -ZOVI800T13 PO
[2017-05-08 05:04] VITALS: BP 127/88; PULSE 95; RESP 16; TEMP 98.2; O2SAT 96
[2017-05-08 05:33] LABS: AUTOMATED NEUTROPHIL # 2.5 TH/MM3 (1.8-7.7); BASOPHIL # 0.1 TH/MM3 (0-0.2); BASOPHIL % 0.9 % (0.0-2.0); EOSINOPHIL % 0.1 % (0.0-4.0); HEMATOCRIT 39.1 % (35.0-46.0); HEMOGLOBIN 12.8 GM/DL (11.6-15.3); LYMPH % 54.5 % (9.0-44.0); LYMPHOCYTE # 3.3 TH/MM3 (1.0-4.8); MEAN CELL VOLUME 84.5 FL (80.0-100.0); MEAN CORPUSCULAR HEMOGLOBIN 27.8 PG (27.0-34.0); MEAN CORPUSCULAR HGB CONC 32.9 % (32.0-36.0); MEAN PLATELET VOLUME 7.1 FL (7.0-11.0); MONO % 3.9 % (0.0-8.0); MONOCYTE # 0.2 TH/MM3 (0-0.9); NEUT % 40.6 % (16.0-70.0); PLATELET COUNT 383 TH/MM3 (150-450); RED BLOOD COUNT 4.62 MIL/MM3 (4.00-5.30); RED CELL DISTRIBUTION WIDTH 16.7 % (11.6-17.2); WHITE BLOOD COUNT 6.1 TH/MM3 (4.0-11.0)
--- NOTE | 2017-05-08 05:34 | PD ---
HPI Chief Complaint: Psychiatric Symptoms Time Seen by Provider: 05:11 Travel History International Travel<30 days: No Contact w/Intl Traveler<30days: No Traveled to known affect area: No History of Present Illness HPI Patient is 56-year-old female presenting to the emergency department for psychiatric evaluation under Carvajal act. Patient states that she called 911 because her cell phone and she had no other way of making a phone call. She denies any suicidal ideations. She states that she was coerced into coming to the emergency department. According to the Carvajal act patient is estranged from her daughter and is upset that she will not talk to her. It also states that she attempted to take too many sleeping pills in the presence of the officer. Patient denies these allegations. When asked about her relationship with her daughter she began to cry and was not forthcoming with any other information. She states that she was not attempting to take too much of the trazodone which is prescribed to her for sleep. She reports taking several bottles of wine last night she reports a history of alcoholism and has been sober but fell off the wagon last night per her report. She denies any IV drug use, previous suicidal ideations or attempts. She denies any current suicide plan. She reports a history of depression, insomnia, hypertension, hyperlipidemia. PFSH Past Medical History Anxiety: Yes Depression: Yes Cardiac Catheterization: Yes (2009) Hypertension: Yes Immunizations Current: Yes Menopausal: Yes : 3 Para: 3 Past Surgical History Appendectomy: Yes Body Medical Devices: TITANIUM DEVICE RT. SHOULDER Hysterectomy: Yes Tonsillectomy: Yes Other Surgery: Yes (TITANIUM DEVICE R SHOULDER, PAH) Family History Family Myocardial Infarction: Yes Social History Alcohol Use: Yes (DAILY 1 QUART VODKA) Tobacco Use: No Substance Use: No Allergies-Medications (Allergen,Severity, Reaction): Coded Allergies: No Known Allergies (Verified , 02/26/17) Reported Meds & Prescriptions Reported Meds & Active Scripts Active Acyclovir Topical (Acyclovir) 5% Oint 1 Applic TOPICAL 5 TIMES A DAY Apply to lip lesions Reported Trazodone (Trazodone HCl) 100 Mg Tablet 100 Mg PO HS Xanax (Alprazolam) 0.5 Mg Tab 0.5 Mg PO BID Neurontin (Gabapentin) 400 Mg Cap 400 Mg PO BID Estradiol 0.5 Mg Tab 0.5 Mg PO DAILY Mobic (Meloxicam) 15 Mg Tab 15 Mg PO DAILY Cymbalta DR (Duloxetine HCl) 60 Mg Capdr 60 Mg PO BID Hydrochlorothiazide 25 Mg Tab 25 Mg PO DAILY Lisinopril 40 Mg Tab 40 Mg PO DAILY Review of Systems Except as stated in HPI: all other systems reviewed are Neg Psychiatric: Positive: Depression, Suicidal Ideations, Substance Abuse Physical Exam Narrative GENERAL: Well-developed, well-nourished, intoxicated-appearing female. SKIN: Warm and dry. HEAD: Atraumatic. Normocephalic. EYES: Pupils equal and round. No scleral icterus. No injection or drainage. ENT: No nasal bleeding or discharge. Mucous membranes pink and moist. NECK: Trachea midline. No JVD. CARDIOVASCULAR: Regular rate and rhythm. RESPIRATORY: No accessory muscle use. Clear to auscultation. Breath sounds equal bilaterally. GASTROINTESTINAL: Abdomen soft, non-tender, nondistended. Hepatic and splenic margins not palpable. MUSCULOSKELETAL: Extremities without clubbing, cyanosis, or edema. No obvious deformities. NEUROLOGICAL: Awake and alert. No obvious cranial nerve deficits. Motor grossly within normal limits. Five out of 5 muscle strength in the arms and legs. Normal speech. PSYCHIATRIC: Depressed mood and affect; insight and judgment normal. Data Data Last Documented VS Vital Signs Date Time Temp Pulse Resp B/P (MAP) Pulse Ox O2 Delivery O2 Flow Rate FiO2 05/08/17 05:04 98.2 95 16 127/88 (101) 96 Orders Orders Complete Blood Count With Diff (05/08/17 05:02) Comprehensive Metabolic Panel (05/08/17 05:02) Urinalysis - C+S If Indicated (05/08/17 05:02) Psych Screen (05/08/17 05:02) Drug Screen, Random Urine (05/08/17 05:02) Alcohol (Ethanol) (05/08/17 05:02) Salicylates (Aspirin) (05/08/17 05:02) Tylenol (Acetaminophen) (05/08/17 05:02) Labs Laboratory Tests Test 05/08/17 05:05 White Blood Count 6.1 TH/MM3 Red Blood Count 4.62 MIL/MM3 Hemoglobin 12.8 GM/DL Hematocrit 39.1 % Mean Corpuscular Volume 84.5 FL Mean Corpuscular Hemoglobin 27.8 PG Mean Corpuscular Hemoglobin Concent 32.9 % Red Cell Distribution Width 16.7 % Platelet Count 383 TH/MM3 Mean Platelet Volume 7.1 FL Neutrophils (%) (Auto) 40.6 % Lymphocytes (%) (Auto) 54.5 % Monocytes (%) (Auto) 3.9 % Eosinophils (%) (Auto) 0.1 % Basophils (%) (Auto) 0.9 % Neutrophils # (Auto) 2.5 TH/MM3 Lymphocytes # (Auto) 3.3 TH/MM3 Monocytes # (Auto) 0.2 TH/MM3 Eosinophils # (Auto) 0.0 TH/MM3 Basophils # (Auto) 0.1 TH/MM3 CBC Comment DIFF FINAL Differential Comment Blood Urea Nitrogen 11 MG/DL Creatinine 0.62 MG/DL Random Glucose 114 MG/DL Total Protein 7.7 GM/DL Albumin 3.7 GM/DL Calcium Level 8.6 MG/DL Alkaline Phosphatase 109 U/L Aspartate Amino Transf (AST/SGOT) 21 U/L Alanine Aminotransferase (ALT/SGPT) 22 U/L Total Bilirubin 0.2 MG/DL Sodium Level 140 MEQ/L Potassium Level 3.9 MEQ/L Chloride Level 101 MEQ/L Carbon Dioxide Level 29.4 MEQ/L Anion Gap 10 MEQ/L Estimat Glomerular Filtration Rate 99 ML/MIN Salicylates Level LESS THAN 1.7 MG/DL Acetaminophen Level LESS THAN 2.0 MCG/ML Ethyl Alcohol Level 246 MG/DL MDM Medical Decision Making Medical Screen Exam Complete: Yes Emergency Medical Condition: Yes Interpretation(s) Laboratory Tests Test 05/08/17 05:05 White Blood Count 6.1 TH/MM3 Red Blood Count 4.62 MIL/MM3 Hemoglobin 12.8 GM/DL Hematocrit 39.1 % Mean Corpuscular Volume 84.5 FL Mean Corpuscular Hemoglobin 27.8 PG Mean Corpuscular Hemoglobin Concent 32.9 % Red Cell Distribution Width 16.7 % Platelet Count 383 TH/MM3 Mean Platelet Volume 7.1 FL Neutrophils (%) (Auto) 40.6 % Lymphocytes (%) (Auto) 54.5 % Monocytes (%) (Auto) 3.9 % Eosinophils (%) (Auto) 0.1 % Basophils (%) (Auto) 0.9 % Neutrophils # (Auto) 2.5 TH/MM3 Lymphocytes # (Auto) 3.3 TH/MM3 Monocytes # (Auto) 0.2 TH/MM3 Eosinophils # (Auto) 0.0 TH/MM3 Basophils # (Auto) 0.1 TH/MM3 CBC Comment DIFF FINAL Differential Comment Blood Urea Nitrogen 11 MG/DL Creatinine 0.62 MG/DL Random Glucose 114 MG/DL Total Protein 7.7 GM/DL Albumin 3.7 GM/DL Calcium Level 8.6 MG/DL Alkaline Phosphatase 109 U/L Aspartate Amino Transf (AST/SGOT) 21 U/L Alanine Aminotransferase (ALT/SGPT) 22 U/L Total Bilirubin 0.2 MG/DL Sodium Level 140 MEQ/L Potassium Level 3.9 MEQ/L Chloride Level 101 MEQ/L Carbon Dioxide Level 29.4 MEQ/L Anion Gap 10 MEQ/L Estimat Glomerular Filtration Rate 99 ML/MIN Salicylates Level LESS THAN 1.7 MG/DL Acetaminophen Level LESS THAN 2.0 MCG/ML Ethyl Alcohol Level 246 MG/DL Vital Signs Date Time Temp Pulse Resp B/P (MAP) Pulse Ox O2 Delivery O2 Flow Rate FiO2 05/08/17 05:04 98.2 95 16 127/88 (101) 96 Differential Diagnosis Substance-induced mood disorder versus depression versus suicidal ideations versus psychosis versus substance abuse versus other Narrative Course Patient is a 56-year-old female presenting to the emergency department for psychiatric evaluation under Carvajal act suicidal ideations. Patient denies any suicidal or homicidal ideations at this time. She reports a history of depression and will not elaborate regarding her relationship with her daughter. Patient appears intoxicated and admits to taking several bottles of wine this evening. Mental health screening discussed with the patient. Psychiatric screen ordered. CBC, chemistry, acetaminophen and salicylate levels are reviewed, no acute abnormalities identified. Alcohol level is 246. Patient is medically clear for psychiatric evaluation at this time. Urine drug screen is pending. Diagnosis Primary Impression: Medical clearance for psychiatric admission Condition: Stable Yusra Holt Muriel MCCABE May 08, 2017 05:34
[2017-05-08 05:42] LABS: ALBUMIN 3.7 GM/DL (3.4-5.0); ALT (GPT) 22 U/L (10-53); AST (GOT) 21 U/L (15-37); BICARBONATE 29.4 MEQ/L (21.0-32.0); BLOOD UREA NITROGEN 11 MG/DL (7-18); CALCIUM 8.6 MG/DL (8.5-10.1); CHLORIDE 101 MEQ/L (98-107); CREATININE 0.62 MG/DL (0.50-1.00); GLOMERULAR FILTRATION RATE 99 ML/MIN (>89); GLUCOSE,RANDOM 114 MG/DL (74-106); SODIUM (NA) 140 MEQ/L (136-145)
[2017-05-08 05:44] LABS: ALKALINE PHOSPHATASE 109 U/L (45-117); TOTAL BILIRUBIN ADULT 0.2 MG/DL (0.2-1.0); TOTAL PROTEIN 7.7 GM/DL (6.4-8.2)
[2017-05-08 05:48] LABS: ACETAMINOPHEN LESS THAN 2.0 MCG/ML (10.0-30.0)
[2017-05-08 07:37] VITALS: BP 102/61; PULSE 92; RESP 15; TEMP 98.3; O2SAT 96
[2017-05-08 09:37] VITALS: BP 135/91; PULSE 104; RESP 18; O2SAT 96
[2017-05-08] MEDS ORDERED: LORazepam 1 MG TAB PO PRN (11:00)
[2017-05-08] MEDS ORDERED: LORazepam 2 MG TAB PO PRN (11:00)
[2017-05-08] MEDS ORDERED: ACETAMINOPHEN 325 MG TAB PO PRN (11:00)
[2017-05-08] MEDS ORDERED: FLUMAZENIL 0.5 MG/5 ML VIAL IV PUSH PRN (11:00)
[2017-05-08] MEDS ORDERED: MAGNESIUM HYDROXIDE SUSP 30 ML CUP PO PRN (11:00)
[2017-05-08] MEDS ORDERED: LORazepam 2 MG/ML VIAL IV PUSH PRN ×4 (11:00)
[2017-05-08] MEDS ORDERED: ALUMINUM/MAGNESIUM/SIMETH 30 ML CUP PO PRN (11:00)
--- NOTE | 2017-05-08 11:12 | HHI.HP ---
Provisional Diagnosis Admission Date [facility]. Adjustment disorder with depressed mood Certification of Person's Competence To Provide Express and Informed Consent I have personally examined Darcie oRsen , a person being served at [facility] on, May 08, 2017 11:01. Express and informed consent means consent voluntarily given in writing, by a competent person, after sufficient explanation and disclosure of the subject matter involved to enable the person to make a knowing and willful decision without any element of force, fraud, deceit, duress, or other form of constraint or coercion. This person is 18 years of age or older, is not now known to be incompetent to consent to treatment with a guardian advocate, and does not have a health care surrogate or proxy currently making medical treatment decisions. I have found this person to be one of the following: [x] Competent to provide express and informed consent, as defined above, for voluntary admission to this facility and is competent to provide express and informed consent for treatment. He/she has the consistent capacity to make well reasoned, willful, and knowing decisions concerning his or her medical or mental health treatment. The person fully and consistently understands the purpose of the admission for examination/placement and is fully capable of personally exercising all rights [place] Incompetent to provide express and informed consent to voluntary admission, and this is incompetent to provide express and informed consent to treatment. The person must be transferred to involuntary status and a petition for a guardian advocate filed with the Circuit Court. [] Refusing to provide express and informed consent to voluntary admission but is competent to provide express and informed consent for treatment. The person must be discharged or transferred to involuntary status. Form shall be completed within 24 hours of a person's arrival at the receiving facility and filed in the clinical record of each person: 1. Admitted on a voluntary basis 2. Permitted to provide express and informed consent to his/her own treatment 3. Allowed to transfer from involuntary to voluntary status 4. Prior to permitting a person to consent to his or her own treatment after having been previously found incompetent to consent to treatment. History of Present Illness Capacity: Has Capacity HPI 56-year-old female brought in under a Carvajal act after allegedly attempting to overdose on her medication and making suicidal threats while intoxicated. Patient is once again denying any suicidal ideation, plan or intent at this time. She does admit to being alcoholic and that she fell off the wagon last night. She also admits that her daughter is not speaking to her. However, instead of crying as she did last night, the patient simply states she does not know why her daughter won't speak with her. This physician also questioned the patient about her dial[address] more minutes on her cell phone but the patient does not have an adequate answer. The patient also does not have an adequate answer as to why the law enforcement officers Carvajal act is different than what she is telling this physician at this time. Furthermore, the patient apparently told the ED doctor last night that she had no history of suicide attempts but indeed, this physician hospitalize the patient for suicidality in February of this year. Finally, the patient's brother and sister have both , possibly as the result of suicide. Patient describes symptoms of anxiety, depression, anhedonia, sleep disturbance , diminished self-esteem, diminished energy, feelings of hopelessness and helplessness, etc. She does reportedly attend AA meetings and have a sponsor. However, she obviously did not call her sponsor last night. Her alcohol level last evening was substantially over 200. Review of Systems Psychiatric: COMPLAINS OF: Anxiety, Depression Except as stated in HPI: all other systems reviewed are Neg Past Psych History Psychological trauma history Unknown regarding psychological trauma. The patient was admitted by this physician Violence risk - others (6 mos) Minimal Violence risk - self (6 mos) High Substance Abuse History Drugs/Alcohol past 12 months Significant history of alcohol abuse Past Family Social History Coded Allergies: No Known Allergies (Verified Adverse Reaction, Unknown, 05/08/17) Active Scripts Acyclovir Topical (Acyclovir Topical) 5% Oint, 1 APPLIC TOPICAL 5 TIMES A DAY for Infection, #1 TUBE Apply to lip lesions Prov:Chandan Forrester 02/28/17 Reported Medications Trazodone (Trazodone) 100 Mg Tablet, 100 MG PO HS for Control Depression, #30 TAB 0 Refills 02/26/17 Alprazolam (Xanax) 0.5 Mg Tab, 0.5 MG PO BID for Anxiety, TAB 0 Refills 02/26/17 Gabapentin (Neurontin) 400 Mg Cap, 400 MG PO BID, #30 CAP 0 Refills 02/26/17 Estradiol (Estradiol) 0.5 Mg Tab, 0.5 MG PO DAILY for Estrogen Supplements, #30 TAB 0 Refills 02/26/17 Meloxicam (Mobic) 15 Mg Tab, 15 MG PO DAILY, TAB 0 Refills 02/26/[address] (Cymbalta DR) 60 Mg Capdr, 60 MG PO BID, #30 CAP 0 Refills 02/26/17 Hydrochlorothiazide (Hydrochlorothiazide) 25 Mg Tab, 25 MG PO DAILY, #30 TAB 0 Refills 02/26/17 Lisinopril (Lisinopril) 40 Mg Tab, 40 MG PO DAILY for Blood Pressure Management , #30 TAB 0 Refills 02/26/17 Current Medications Medications (Trade) Dose Ordered Sig/Pranav Route Start Time Stop Time Status Last Admin (Tylenol) 650 mg Q4H PRN PO 05/08/17 11:00 UNV (Milk Of Magnesia Liq) 30 ml DAILY PRN PO 05/08/17 11:00 UNV (Mag-Al Plus Susp Liq) 30 ml Q6H PRN PO 05/08/17 11:00 UNV (Romazicon Inj) 0.2 mg Q1M PRN IV PUSH 05/08/17 11:00 UNV (Ativan) 1 mg Q4H PRN PO 05/08/17 11:00 UNV (Ativan Inj) 1 mg Q4H PRN IV PUSH 05/08/17 11:00 UNV (Ativan) 2 mg Q2H PRN PO 05/08/17 11:00 UNV (Ativan Inj) 2 mg Q2H PRN IV PUSH 05/08/17 11:00 UNV (Ativan Inj) 2 mg Q1H PRN IV PUSH 05/08/17 11:00 UNV Family Psych History Positive for mood disorders and alcoholism and drug abuse Social History Patient is currently unemployed. She has one daughter with whom there is no current relationship. She attends AA meetings and has a sponsor, according to her own report. Patient's Strengths (min. 2) Verbal and has access to healthcare. Physical Exam GENERAL: SKIN: Warm and dry. HEAD: Normocephalic. EYES: No scleral icterus. No injection or drainage. NECK: Supple, trachea midline. No JVD or lymphadenopathy. CARDIOVASCULAR: Regular rate and rhythm without murmurs, gallops, or rubs. RESPIRATORY: Breath sounds equal bilaterally. No accessory muscle use. GASTROINTESTINAL: Abdomen soft, non-tender, nondistended. MUSCULOSKELETAL: No cyanosis, or edema. BACK: Nontender without obvious deformity. No CVA tenderness. Vital Signs Vital Signs Date Time Temp Pulse Resp B/P (MAP) Pulse Ox O2 Delivery O2 Flow Rate FiO2 05/08/17 09:37 104 18 135/91 (106) 96 Room Air 05/08/17 07:37 98.3 Lab Results Test 05/08/17 05:05 White Blood Count 6.1 TH/MM3 Red Blood Count 4.62 MIL/MM3 Hemoglobin 12.8 GM/DL Hematocrit 39.1 % Mean Corpuscular Volume 84.5 FL Mean Corpuscular Hemoglobin 27.8 PG Mean Corpuscular Hemoglobin Concent 32.9 % Red Cell Distribution Width 16.7 % Platelet Count 383 TH/MM3 Mean Platelet Volume 7.1 FL Neutrophils (%) (Auto) 40.6 % Lymphocytes (%) (Auto) 54.5 % Monocytes (%) (Auto) 3.9 % Eosinophils (%) (Auto) 0.1 % Basophils (%) (Auto) 0.9 % Neutrophils # (Auto) 2.5 TH/MM3 Lymphocytes # (Auto) 3.3 TH/MM3 Monocytes # (Auto) 0.2 TH/MM3 Eosinophils # (Auto) 0.0 TH/MM3 Basophils # (Auto) 0.1 TH/MM3 CBC Comment DIFF FINAL Differential Comment Blood Urea Nitrogen 11 MG/DL Creatinine 0.62 MG/DL Random Glucose 114 MG/DL Total Protein 7.7 GM/DL Albumin 3.7 GM/DL Calcium Level 8.6 MG/DL Alkaline Phosphatase 109 U/L Aspartate Amino Transf (AST/SGOT) 21 U/L Alanine Aminotransferase (ALT/SGPT) 22 U/L Total Bilirubin 0.2 MG/DL Sodium Level 140 MEQ/L Potassium Level 3.9 MEQ/L Chloride Level 101 MEQ/L Carbon Dioxide Level 29.4 MEQ/L Anion Gap 10 MEQ/L Estimat Glomerular Filtration Rate 99 ML/MIN Salicylates Level LESS THAN 1.7 MG/DL Acetaminophen Level LESS THAN 2.0 MCG/ML Ethyl Alcohol Level 246 MG/DL Mental Status Examination Appearance: Appropriate Consciousness: Alert Orientation: x4 Motor Activity: Normal gait Speech: Unremarkable Language: Adequate Fund of Knowledge: Adequate Attention and Concentration: Adequate Memory: Unremarkable Mood: Sad, Anxious Affect: Sad, Anxious Thought Process & Associations: Intact Thought Content: Appropriate Hallucination Type: None Delusion Type: None Suicidal Ideation: Yes Suicidal Plan: No Suicidal Intention: No Homicidal Ideation: No Homicidal Plan: No Homicidal Intention: No Insight: Fair Judgment: Impulsive Assessment & Plan Problem List: (1) Adjustment disorder with depressed mood ICD Codes: F43.21 - Adjustment disorder with depressed mood Status: Acute Assessment & Plan Estimated LOS: days. 56-year-old female brought in under a Carvajal act by law enforcement for reportedly attempting to overdose on sleeping medicine while substantially intoxicated and making suicidal statements to the federal court of appeals law clerk. Patient denies attempting to overdose and denies making suicidal statements. However, she neglected to inform the emergency department attending physician of her previous suicidal behavior in February of this year. She is not speaking with her daughter. She did not call her sponsor. She did call 911. She has a family history of suicides. This physician feels she is at great risk for harming herself and therefore his admitting her for further evaluation and treatment. This physician ordered a CBC and comprehensive metabolic panel to determine if any infectious process or metabolic process is causing or contributing to her depression. Likewise, because of the patient's alcohol abuse, the metabolic panel will determine if the patient has placed herself in risk due to electrolyte disturbances from her alcoholism. Additionally, we are obtaining a thyroid-stimulating hormone level, vitamin B-12 level and vitamin D level, to determine if deficiencies in these areas may be causing or contributing to her depression. Furthermore, the patient will have a EKG to determine her cardiac conduction status and whether the multitude of medicines and psychotropics she is currently prescribed are adversely affecting her cardiac conduction. This physician also started a CIWA protocol as the patient has been prescribed Xanax by her primary care physician and she has been drinking alcohol. Therefore, if she goes into withdrawal, it is felt the C while protocol will assist her. This physician spoke with the patient's nurse, Siva, regarding her recent behavior. Finally, case management will be involved to assist with further information gathering and disposition planning. Simon Cuello MD May 08, 2017 11:12
[2017-05-08] MEDS ORDERED: PILL SPLITTER OTHER PRN (13:30)
[2017-05-08 17:06] VITALS: BP 138/90; PULSE 100; RESP 18; TEMP 98; O2SAT 97
[2017-05-08] MEDS: DULoxetine HCl DR 60 MG CAP PO SCH (20:51)
[2017-05-08] MEDS: GABAPENTIN 400 MG CAP PO SCH (20:52)
[2017-05-08] MEDS ORDERED: traZODone HCL 100 MG TAB PO SCH (21:00)
[2017-05-09 06:30] VITALS: BP 125/59; PULSE 96; RESP 16; TEMP 98.2; O2SAT 96
[2017-05-09 07:59] LABS: AUTOMATED NEUTROPHIL # 1.8 TH/MM3 (1.8-7.7); BASOPHIL % 0.8 % (0.0-2.0); EOSINOPHIL % 0.5 % (0.0-4.0); HEMATOCRIT 36.7 % (35.0-46.0); HEMOGLOBIN 11.9 GM/DL (11.6-15.3); LYMPH % 47.3 % (9.0-44.0); LYMPHOCYTE # 1.9 TH/MM3 (1.0-4.8); MEAN CELL VOLUME 84.5 FL (80.0-100.0); MEAN CORPUSCULAR HEMOGLOBIN 27.3 PG (27.0-34.0); MEAN CORPUSCULAR HGB CONC 32.3 % (32.0-36.0); MEAN PLATELET VOLUME 7.2 FL (7.0-11.0); MONO % 6.9 % (0.0-8.0); MONOCYTE # 0.3 TH/MM3 (0-0.9); NEUT % 44.5 % (16.0-70.0); PLATELET COUNT 321 TH/MM3 (150-450); RED BLOOD COUNT 4.34 MIL/MM3 (4.00-5.30); RED CELL DISTRIBUTION WIDTH 16.5 % (11.6-17.2); WHITE BLOOD COUNT 4.1 TH/MM3 (4.0-11.0)
[2017-05-09 08:36] LABS: ALBUMIN 3.4 GM/DL (3.4-5.0); AST (GOT) 20 U/L (15-37); BICARBONATE 30.8 MEQ/L (21.0-32.0); BLOOD UREA NITROGEN 10 MG/DL (7-18); CALCIUM 9.4 MG/DL (8.5-10.1); CHLORIDE 102 MEQ/L (98-107); CHOLESTEROL 199 MG/DL (120-200); CREATININE 0.63 MG/DL (0.50-1.00); GLOMERULAR FILTRATION RATE 97 ML/MIN (>89); GLUCOSE,RANDOM 92 MG/DL (74-106); SODIUM (NA) 141 MEQ/L (136-145)
[2017-05-09] MEDS ORDERED: MELOXICAM 15 MG TAB PO SCH (09:00)
[2017-05-09] MEDS ORDERED: LISINOPRIL 20 MG TAB PO SCH (09:00)
[2017-05-09] MEDS ORDERED: HYDROCHLOROTHIAZIDE 25 MG TAB PO SCH (09:00)
[2017-05-09] MEDS ORDERED: ESTRADIOL 1 MG TAB PO SCH (09:00)
[2017-05-09 09:04] LABS: ALKALINE PHOSPHATASE 99 U/L (45-117); ALT (GPT) 18 U/L (10-53); CHOLESTEROL/ HDL RATIO 2.56 RATIO; HDL CHOLESTEROL 77.5 MG/DL (40.0-60.0); LDL CHOLESTEROL 86 MG/DL (0-99); TOTAL BILIRUBIN ADULT 0.8 MG/DL (0.2-1.0); TOTAL PROTEIN 6.8 GM/DL (6.4-8.2); TRIGLYCERIDES 176 MG/DL (42-150)
[2017-05-09] MEDS: GABAPENTIN 400 MG CAP PO SCH (09:41)
[2017-05-09] MEDS: DULoxetine HCl DR 60 MG CAP PO SCH (09:45)
[2017-05-09 11:02] LABS: HEMOGLOBIN A1C 6.1 % (4.3-6.0)
--- NOTE | 2017-05-09 11:51 | HHI.DS ---
Psychiatry Discharge Summary Inpatient Psychiatric care?: Yes Advance Directive: No Reason Not Provided: Due to Patient Condition Mental Health AdvanceDirective: No Health Care Proxy: No Admission Admission Date May 08, 2017 at 10:57 Admission Diagnosis: (1) Alcohol abuse with intoxication ICD Code: F10.129 - Alcohol abuse with intoxication, unspecified (2) Adjustment disorder with depressed mood ICD Code: F43.21 - Adjustment disorder with depressed mood Brief History 56-year-old female brought in under a Carvajal act after allegedly attempting to overdose on her medication and making suicidal threats while intoxicated. Patient is once again denying any suicidal ideation, plan or intent at this time. She does admit to being alcoholic and that she fell off the wagon last night. She also admits that her daughter is not speaking to her. However, instead of crying as she did last night, the patient simply states she does not know why her daughter won't speak with her. This physician also questioned the patient about her dial[address] more minutes on her cell phone but the patient does not have an adequate answer. The patient also does not have an adequate answer as to why the law enforcement officers Carvajal act is different than what she is telling this physician at this time. Furthermore, the patient apparently told the ED doctor last night that she had no history of suicide attempts but indeed, this physician hospitalize the patient for suicidality in February of this year. Finally, the patient's brother and sister have both , possibly as the result of suicide. Patient describes symptoms of anxiety, depression, anhedonia, sleep disturbance , diminished self-esteem, diminished energy, feelings of hopelessness and helplessness, etc. She does reportedly attend AA meetings and have a sponsor. However, she obviously did not call her sponsor last night. Her alcohol level last evening was substantially over 200. Tobacco Use In Past 30 Days: No Tobacco Past 30 Days Alcohol Use: 2-4 Times Per Month Hospital Course Patient seen today with nurse Ally and medical student Kelvin, chart review, patient compliant medications. Patient alert oriented calm and cooperative acknowledging her alcoholism. He stated she was a little depressed affect patient not seen her grandchild. The child and patient's daughter will be moving soon to [facility] to stay with the daughter's father. This is causing some depression of the patient. She relapsed into alcohol use. She readily acknowledges being alcoholic. But the affect is not truly congruent with the statements. She states she goes to AA meetings frequently and does have a sponsor. At this time patient does not meet Carvajal criteria, will lift Carvajal act patient to be discharged to herself, no Rx by me, strong recommendation absolute abstinence, follow-up AA with sponsor, follow-up PCP Results Blood Pressure 125 / 59 Vital Signs Date Time Temp Pulse Resp B/P (MAP) Pulse Ox O2 Delivery O2 Flow Rate FiO2 05/09/17 06:30 98.2 96 16 125/59 (81) 96 05/08/17 09:37 Room Air Laboratory Tests Test 05/08/17 05:05 05/09/17 07:24 Lymphocytes (%) (Auto) 54.5 % (9.0-44.0) 47.3 % (9.0-44.0) Random Glucose 114 MG/DL (74-106) Salicylates Level LESS THAN 1.7 MG/DL Acetaminophen Level LESS THAN 2.0 MCG/ML Ethyl Alcohol Level 246 MG/DL (0-5) Hemoglobin A1c 6.1 % (4.3-6.0) Triglycerides Level 176 MG/DL (42-150) HDL Cholesterol 77.5 MG/DL (40.0-60.0) 25-Hydroxy Vitamin D Total 23.2 ng/ML (30-100) Thyroid Stimulating Hormone 3rd Gen 6.060 uIU/ML (0.358-3.740) Laboratory Results Test 05/09/17 07:24 Cholesterol Level 199 MG/DL (120-200) HDL Cholesterol 77.5 MG/DL (40.0-60.0) Hemoglobin A1c 6.1 % (4.3-6.0) LDL Cholesterol 86 MG/DL (0-99) Triglycerides Level 176 MG/DL (42-150) Summary of Procedures None done Pending results at discharge: No Medications # of Antipsychotic meds at D/C: 0 Approp Antipsych med options 1 - Minimum of three failed multiple trials of monotherapy. 2 - Documented plan to taper to monotherapy due to previous use of multiple meds OR cross-taper in progress at D/C. 3 - Documentation of augmentation of Clozapine. 4 - Justification other than those listed in allowable values 1-3, document here : Discharge Discharge Date: May 09, 2017 Discharge Diagnosis: (1) Alcohol abuse with intoxication Diagnosis: Secondary ICD Code: F10.129 - Alcohol abuse with intoxication, unspecified (2) Adjustment disorder with depressed mood Diagnosis: Principal ICD Code: F43.21 - Adjustment disorder with depressed mood Status: Acute Pt Condition on Discharge: Stable Discharge Disposition: Discharge Home Discharge Instructions Diet Instructions: As Tolerated, No Restrictions Activities you can perform: Regular-No Restrictions Scheduled Appointment: follow-up PCP, referred to AA with sponsor Discharge Time > 30 minutes Mental Status Examination Appearance: Appropriate Consciousness: Alert Orientation: x4 Motor Activity: Normal gait Speech: Unremarkable Language: Adequate Fund of Knowledge: Adequate Attention and Concentration: Adequate Memory: Unremarkable Mood: Sad, Anxious Affect: Sad, Anxious Thought Process & Associations: Intact Thought Content: Appropriate Hallucination Type: None Delusion Type: None Suicidal Ideation: Yes Suicidal Plan: No Suicidal Intention: No Homicidal Ideation: No Homicidal Plan: No Homicidal Intention: No Insight: Fair Judgment: Impulsive Discharge/Advance Care Plan Health Problems: (1) Adjustment disorder with depressed mood Goals to promote your health * To prevent worsening of your condition and complications * To maintain your health at the optimal level Directions to meet your goals Take your medications as prescribed Follow your dietary instruction Follow activity as directed Keep your appointments as scheduled Take your immunizations and boosters as scheduled If your symptoms worsen call your PCP, if no PCP go to Urgent Care Center or Emergency Room For 24/ questions related to your inpatient stay or results of tests pending at discharge, please contact Dr. Dameon Ledbetter at Smoking is Dangerous to Your Health. Avoid second hand smoking Dameon Ledbetter MD May 09, 2017 11:51
--- NOTE | 2017-05-09 13:29 | EKG ---
Date Performed: 05/09/2017 Time Performed: 07:36:46 PTAGE: 56 years EKG: Sinus rhythm NORMAL ECG Compared to prior tracing no significant change PREVIOUS TRACING : 02/26/2017 16.39 DOCTOR: Billy Fernandez Interpretating Date/Time 05/09/2017 13:26:16
== END 2017-05-09 14:55 | disposition home or self-care (01) | DRG 897 ==
LOC: NEPD 04:53 → NEDA 10:57 → H260 14:25
PROVIDERS: ADMIT Psychiatry & Neurology Psychiatry; ATTEND Psychiatry & Neurology Psychiatry
DX: F10.220 Alcohol dependence with intoxication, uncomplicated (principal); R45.851 Suicidal ideations; F43.21 Adjustment disorder with depressed mood; I10 Essential (primary) hypertension; Y90.8 Blood alcohol level of 240 mg/100 ml or more; E78.5 Hyperlipidemia, unspecified; G47.00 Insomnia, unspecified; F41.9 Anxiety disorder, unspecified
CPT/HCPCS: 80053; 80061; 80307; 82306; 82607; 83036; 84443; 85025; 93005; 99285

== ENCOUNTER 2017-05-31 09:49 | Emergency (ER) | payer OTHER ==
[~2017-05-31] VITALS: Ht 170.2 cm; Wt 70.0 kg
[~2017-05-31 09:49] MED LIST changes: +TRAZ100T10 PO; -TRAZ100T6 PO
[2017-05-31 09:51] VITALS: BP 142/96; PULSE 108; RESP 18; TEMP 97.8; O2SAT 99
[2017-05-31] MEDS ORDERED: HALOPERIDOL LACTATE 5 MG/ML AMP IM ONE (11:00)
[2017-05-31] MEDS ORDERED: LORazepam 2 MG/ML VIAL IV PUSH ONE (11:00)
--- NOTE | 2017-05-31 11:29 | PD ---
HPI . Alcohol intoxication and depression Chief Complaint: Psychiatric Symptoms Time Seen by Provider: 10:40 Travel History International Travel<30 days: No Contact w/Intl Traveler<30days: No Traveled to known affect area: No History of Present Illness HPI This patient brought in involuntarily by her niece for alcohol abuse, acute alcohol intoxication and depression. No history is obtainable from the patient. She is moaning like a little baby. No intelligible words. The niece states that she has been in contact with a detox facility in [place]. The detox facility told the niece that the patient will need to be medically cleared here for they would accept her in [place]. PFSH Past Medical History Arthritis: No Asthma: No Autoimmune Disease: No Anxiety: Yes Depression: Yes Heart Rhythm Problems: No Cancer: No Cardiac Catheterization: Yes (2009) Cardiovascular Problems: Yes (HBP) High Cholesterol: No Chemotherapy: No Chest Pain: No Congestive Heart Failure: No COPD: No Cerebrovascular Accident: No Diabetes: No Diminished Hearing: No Endocrine: No GERD: No Genitourinary: No Hiatal Hernia: No Hypertension: Yes Immune Disorder: No Implanted Vascular Access Dvce: Yes Kidney Stones: No Musculoskeletal: No Neurologic: No Psychiatric: No Reproductive: No Respiratory: No Immunizations Current: Yes Migraines: No Radiation Therapy: No Seizures: No Sickle Cell Disease: No Sleep Apnea: No Thyroid Disease: No Ulcer: No Menopausal: Yes : 3 Para: 3 Past Surgical History Abdominal Surgery: No AICD: No Appendectomy: Yes Arteriovenous Shunt: No Body Medical Devices: TITANIUM DEVICE RT. SHOULDER Cardiac Surgery: No Ear Surgery: No Endocrine Surgery: No Eye Surgery: No Genitourinary Surgery: No Gynecologic Surgery: Yes (hysterectomy) Hysterectomy: Yes Insulin Pump: No Joint Replacement: No Oral Surgery: No Pacemaker: No Thoracic Surgery: No Tonsillectomy: Yes Other Surgery: Yes (TITANIUM DEVICE R SHOULDER, PAH) Family History Family Myocardial Infarction: Yes Social History Alcohol Use: Yes (DAILY 1 QUART VODKA) Tobacco Use: No Substance Use: No Allergies-Medications (Allergen,Severity, Reaction): Coded Allergies: No Known Allergies (Verified Allergy, Unknown, 05/08/17) Reported Meds & Prescriptions Reported Meds & Active Scripts Active Acyclovir Topical (Acyclovir) 5% Oint 1 Applic TOPICAL 5 TIMES A DAY Apply to lip lesions Reported Trazodone (Trazodone HCl) 100 Mg Tablet 100 Mg PO HS Xanax (Alprazolam) 0.5 Mg Tab 0.5 Mg PO BID Neurontin (Gabapentin) 400 Mg Cap 400 Mg PO BID Estradiol 0.5 Mg Tab 0.5 Mg PO DAILY Mobic (Meloxicam) 15 Mg Tab 15 Mg PO DAILY Cymbalta DR (Duloxetine HCl) 60 Mg Capdr 60 Mg PO BID Hydrochlorothiazide 25 Mg Tab 25 Mg PO DAILY Lisinopril 40 Mg Tab 40 Mg PO DAILY Review of Systems ROS Limitations: Intoxication Physical Exam Narrative GENERAL: Awake and alert. Moaning. She is intermittently attempting to get up out of bed but is unstable feet. She smells heavily of alcohol. SKIN: Warm and dry. Good color and good turgor. HEAD: Normocephalic/atraumatic. EYES: Pupils are equal. Extraocular movements are intact. NECK: Normal range of motion. CARDIOVASCULAR: Regular rate and rhythm. RESPIRATORY: Nonlabored respirations. MUSCULOSKELETAL: Atraumatic. NEUROLOGICAL: Nonfocal. PSYCHIATRIC: The patient is moaning and crying. Data Data Last Documented VS Vital Signs Date Time Temp Pulse Resp B/P (MAP) Pulse Ox O2 Delivery O2 Flow Rate FiO2 05/31/17 09:51 97.8 108 18 142/96 (111) 99 Orders Orders Complete Blood Count With Diff (05/31/17 10:46) Comprehensive Metabolic Panel (05/31/17 10:46) Drug Screen, Random Urine (05/31/17 10:46) Alcohol (Ethanol) (05/31/17 10:46) Haloperidol Inj (Haldol Inj) (05/31/17 11:00) Lorazepam Inj (Ativan Inj) (05/31/17 11:00) Labs Laboratory Tests Test 05/31/17 11:45 05/31/17 13:15 White Blood Count 4.3 TH/MM3 Red Blood Count 4.98 MIL/MM3 Hemoglobin 13.1 GM/DL Hematocrit 40.6 % Mean Corpuscular Volume 81.6 FL Mean Corpuscular Hemoglobin 26.3 PG Mean Corpuscular Hemoglobin Concent 32.3 % Red Cell Distribution Width 16.7 % Platelet Count 337 TH/MM3 Mean Platelet Volume 6.3 FL Neutrophils (%) (Auto) 43.0 % Lymphocytes (%) (Auto) 51.7 % Monocytes (%) (Auto) 4.3 % Eosinophils (%) (Auto) 0.0 % Basophils (%) (Auto) 1.0 % Neutrophils # (Auto) 1.9 TH/MM3 Lymphocytes # (Auto) 2.2 TH/MM3 Monocytes # (Auto) 0.2 TH/MM3 Eosinophils # (Auto) 0.0 TH/MM3 Basophils # (Auto) 0.0 TH/MM3 CBC Comment DIFF FINAL Differential Comment Blood Urea Nitrogen 14 MG/DL Creatinine 0.63 MG/DL Random Glucose 82 MG/DL Total Protein 7.9 GM/DL Albumin 4.1 GM/DL Calcium Level 8.7 MG/DL Alkaline Phosphatase 105 U/L Aspartate Amino Transf (AST/SGOT) 57 U/L Alanine Aminotransferase (ALT/SGPT) 36 U/L Total Bilirubin 0.4 MG/DL Sodium Level 141 MEQ/L Potassium Level 3.6 MEQ/L Chloride Level 105 MEQ/L Carbon Dioxide Level 25.8 MEQ/L Anion Gap 10 MEQ/L Estimat Glomerular Filtration Rate 97 ML/MIN Ethyl Alcohol Level 345 MG/DL [facility] Medical Decision Making Medical Screen Exam Complete: Yes Emergency Medical Condition: Yes Differential Diagnosis Differential diagnosis of altered mental status includes but is not limited to infection, electrolyte abnormality, neurological event, intoxication Narrative Course This patient is brought in by her niece with acute on chronic alcohol abuse. The niece reports depression. Records revealed previous suicidal ideation. The patient is not voluntarily staying in bed and is at risk for falling. She has been medicated with Haldol and Ativan. The patient has been resting comfortably after being medicated. CBC & BMP Diagram 05/31/17 11:45 Total Protein 7.9, Albumin 4.1, Calcium Level 8.7, Alkaline Phosphatase 105, Aspartate Amino Transf (AST/SGOT) 57 H, Alanine Aminotransferase (ALT/SGPT) 36, Total Bilirubin 0.4 Alcohol level is 345 This patient is now medically clear to go to a detox facility. Diagnosis Primary Impression: Alcohol abuse with alcohol-induced mood disorder Condition: Piedad House MD May 31, 2017 11:29
[2017-05-31 12:04] LABS: AUTOMATED NEUTROPHIL # 1.9 TH/MM3 (1.8-7.7); HEMATOCRIT 40.6 % (35.0-46.0); HEMO FLAGS DIFF FINAL; LYMPH % 51.7 % (9.0-44.0); LYMPHOCYTE # 2.2 TH/MM3 (1.0-4.8); MEAN CELL VOLUME 81.6 FL (80.0-100.0); MEAN CORPUSCULAR HEMOGLOBIN 26.3 PG (27.0-34.0); MEAN CORPUSCULAR HGB CONC 32.3 % (32.0-36.0); MONO % 4.3 % (0.0-8.0); PLATELET COUNT 337 TH/MM3 (150-450); RED BLOOD COUNT 4.98 MIL/MM3 (4.00-5.30); RED CELL DISTRIBUTION WIDTH 16.7 % (11.6-17.2); WHITE BLOOD COUNT 4.3 TH/MM3 (4.0-11.0)
[2017-05-31 12:26] LABS: ANION GAP 10 MEQ/L (5-15); AST (GOT) 57 U/L (15-37); BICARBONATE 25.8 MEQ/L (21.0-32.0); BLOOD UREA NITROGEN 14 MG/DL (7-18); CHLORIDE 105 MEQ/L (98-107); GLOMERULAR FILTRATION RATE 97 ML/MIN (>89); POTASSIUM 3.6 MEQ/L (3.5-5.1); SODIUM (NA) 141 MEQ/L (136-145)
[2017-05-31 12:28] LABS: ALT (GPT) 36 U/L (10-53)
[2017-05-31 12:34] LABS: ALCOHOL 345 MG/DL (0-5); ALKALINE PHOSPHATASE 105 U/L (45-117); TOTAL BILIRUBIN ADULT 0.4 MG/DL (0.2-1.0)
[2017-05-31 17:27] VITALS: BP 140/70; PULSE 122; RESP 16; O2SAT 96
[2017-05-31] MEDS ORDERED: LORazepam 1 MG TAB PO ONE (18:00)
--- NOTE | 2017-05-31 18:01 | PD ---
Data Data Last Documented VS Vital Signs Date Time Temp Pulse Resp B/P (MAP) Pulse Ox O2 Delivery O2 Flow Rate FiO2 05/31/17 17:27 122 16 140/70 (93) 96 05/31/17 09:51 97.8 Orders Orders Complete Blood Count With Diff (05/31/17 10:46) Comprehensive Metabolic Panel (05/31/17 10:46) Drug Screen, Random Urine (05/31/17 10:46) Alcohol (Ethanol) (05/31/17 10:46) Haloperidol Inj (Haldol Inj) (05/31/17 11:00) Lorazepam Inj (Ativan Inj) (05/31/17 11:00) Lorazepam (Ativan) (05/31/17 18:00) Labs Laboratory Tests Test 05/31/17 11:45 05/31/17 13:15 White Blood Count 4.3 TH/MM3 Red Blood Count 4.98 MIL/MM3 Hemoglobin 13.1 GM/DL Hematocrit 40.6 % Mean Corpuscular Volume 81.6 FL Mean Corpuscular Hemoglobin 26.3 PG Mean Corpuscular Hemoglobin Concent 32.3 % Red Cell Distribution Width 16.7 % Platelet Count 337 TH/MM3 Mean Platelet Volume 6.3 FL Neutrophils (%) (Auto) 43.0 % Lymphocytes (%) (Auto) 51.7 % Monocytes (%) (Auto) 4.3 % Eosinophils (%) (Auto) 0.0 % Basophils (%) (Auto) 1.0 % Neutrophils # (Auto) 1.9 TH/MM3 Lymphocytes # (Auto) 2.2 TH/MM3 Monocytes # (Auto) 0.2 TH/MM3 Eosinophils # (Auto) 0.0 TH/MM3 Basophils # (Auto) 0.0 TH/MM3 CBC Comment DIFF FINAL Differential Comment Blood Urea Nitrogen 14 MG/DL Creatinine 0.63 MG/DL Random Glucose 82 MG/DL Total Protein 7.9 GM/DL Albumin 4.1 GM/DL Calcium Level 8.7 MG/DL Alkaline Phosphatase 105 U/L Aspartate Amino Transf (AST/SGOT) 57 U/L Alanine Aminotransferase (ALT/SGPT) 36 U/L Total Bilirubin 0.4 MG/DL Sodium Level 141 MEQ/L Potassium Level 3.6 MEQ/L Chloride Level 105 MEQ/L Carbon Dioxide Level 25.8 MEQ/L Anion Gap 10 MEQ/L Estimat Glomerular Filtration Rate 97 ML/MIN Ethyl Alcohol Level 345 MG/DL Urine Opiates Screen NEG Urine Barbiturates Screen NEG Urine Amphetamines Screen NEG Urine Benzodiazepines Screen NEG Urine Cocaine Screen NEG Urine Cannabinoids Screen NEG MDM Supervised Visit with SHANTELLE: No Narrative Course The patient was initially evaluated by the previous provider. See her note for further details. The patient remains in the emergency department awaiting bed availability at a rehabilitation center for alcohol abuse. While in the emergency department I was notified by the nurse that her rate is in the 130s. Patient's blood pressure is 140s over 70s. She is awake and alert and denies any physical complaints. Apparently she was already given IV fluids, and IV was removed. She will be given a dose of Ativan for likely alcohol withdrawals. Diagnosis Primary Impression: Alcohol abuse with alcohol-induced mood disorder Condition: Stable Joce Winters MD May 31, 2017 18:01
== END 2017-05-31 19:00 | disposition home or self-care (01) ==
LOC: NEPD 09:49
DX: F10.14 Alcohol abuse with alcohol-induced mood disorder (principal); F32.9 Major depressive disorder, single episode, unspecified; F41.9 Anxiety disorder, unspecified; I10 Essential (primary) hypertension; Z79.899 Other long term (current) drug therapy
CPT/HCPCS: 80053; 80307; 85025; 96372; 96374; 99285; J1630; J2060

== ENCOUNTER 2017-11-21 18:16 | Emergency (ER) | END 2017-11-23 12:25 | disposition home or self-care (01) | DX: F43.25 Adjustment disorder with mixed disturbance of emotions and conduct (principal); F10.229 Alcohol dependence with intoxication, unspecified; I10 Essential (primary) hypertension; Y90.7 Blood alcohol level of 200-239 mg/100 ml ==

== ENCOUNTER 2018-04-13 15:21 | Observation (INO) ==
[2018-04-13] MEDS ORDERED: Famotidine PF Inj 20 MG/2 ML Vial IV.PUSH ONE (15:45)
[2018-04-13] MEDS ORDERED: MethylPREDNISolone Sod Succinate Inj 125 MG/2 ML Vial IV.PUSH ONE (15:45)
--- NOTE | 2018-04-13 16:32 | ED ---
HPI General Chief complaint: Allergic Reaction Stated complaint: skin issue Time Seen by Provider: 04/13/18 15:31 Source: patient Mode of arrival: ambulatory Limitations: no limitations History of Present Illness HPI narrative: 57-year-old female who presents to the ED for evaluation of possible allergic reaction. Patient states that she is had allergic reaction since yesterday. Patient has a very itchy rash on the face, neck, groin as well as the arms and legs. Per patient she tried Vistaril from her friend with minimal relief. She states that she also took one Benadryl with minimal relief. She denies any new exposures to medications. She does state that she came from [place] 2 weeks ago has denied taking any new medications. She does take medications for chronic headaches but denies taking them for the past 2 weeks as she ran out of them. Denies any urinary or bowel movement issues. No chest pain. No fevers chills or sweats. He does state having some nausea today but no vomiting. Denies any pain. Per patient the rash is itchy. Not inside the mouth or inside the vagina. On the on the outside skin. Related Data Home Medications Medication Instructions Recorded Confirmed duloxetine [Cymbalta] 60 mg PO DAILY 04/13/18 04/13/18 hydrochlorothiazide 25 mg PO DAILY 04/13/18 04/13/18 lisinopril 40 mg PO DAILY 04/13/18 04/13/18 topiramate [Topamax] 50 mg PO DAILY 04/13/18 04/13/18 Previous Rx's Medication Instructions Recorded diphenhydramine HCl [Benadryl] 25 mg PO Q6H 7 Days #28 cap 04/14/18 pramoxine-calamine [Calamine Plus 1 applic TOPICAL TID PRN #1 bottle 04/14/18 (pramox-calamin)] prednisone 20 mg PO BID 5 Days #10 tab 04/14/18 ranitidine HCl [Zantac Maximum 150 mg PO BID 7 Days #14 tab 04/14/18 Strength] Allergies Allergy/AdvReac Type Severity Reaction Status Date / Time Penicillins Allergy Unknown unknown Verified 04/13/18 15:50 morphine AdvReac Palpitation Verified 04/14/18 15:20 s Review of Systems ROS: all other systems reviewed are negative [facility] Medical History Medical History Eczema (Acute) Hypertension (Acute) Migraine (Acute) Medical history unknown (Acute) Social History Social History Substance History: No History of Abuse Second Hand Smoke Exposure: No Smoking Status: Never smoker How Often Do You Have a Drink Containing Alcohol: Monthly or less Recent Travel in [facility] within the Last 8 Weeks: No Recent Out of Country Travel within the Last 8 Weeks: No Immunization History Tetanus Immunization: <5 Years Exam Narrative Exam Narrative: GENERAL: well appearing in no distress. SKIN: Focused skin assessment warm/dry. Patient has a very pruritic rash on the face as well as in the groin and arms and legs. More noticeable on the face and the neck. Hive looking. No sign of pustules. HEAD: Atraumatic. Normocephalic. EYES: Pupils equal and round. No scleral icterus. No injection or drainage. ENT: No nasal bleeding or discharge. Mucous membranes pink and moist. NECK: Trachea midline. No JVD. CARDIOVASCULAR: Regular rate and rhythm. No murmur appreciated. RESPIRATORY: No accessory muscle use. Clear to auscultation. Breath sounds equal bilaterally. GASTROINTESTINAL: Abdomen soft, non-tender, nondistended. Hepatic and splenic margins not palpable. MUSCULOSKELETAL: No obvious deformities. No clubbing. No cyanosis. No edema. NEUROLOGICAL: Awake and alert. No obvious cranial nerve deficits. Motor grossly within normal limits. Normal speech. PSYCHIATRIC: Appropriate mood and affect; insight and judgment normal. Course Initial Documented Vital Signs Temperature 97.7 F 04/13/18 15:24 Pulse Rate 90 04/13/18 15:24 Respiratory Rate 20 04/13/18 15:24 Blood Pressure 193/92 H 04/13/18 15:24 Pulse Oximetry 100 04/13/18 15:24 Last Documented Vital Signs Temperature 98.3 F 04/14/18 08:17 Pulse Rate 74 04/14/18 08:17 Respiratory Rate 20 04/14/18 08:17 Blood Pressure 154/80 H 04/14/18 08:17 Pulse Oximetry 98 04/14/18 08:17 Medical Decision Making SHANTELLE Attestation SHANTELLE supervised visit: Yes Attestation: I, Dr. Benoit, have reviewed the advance practice practitioner's documentation and am in agreement, met with the patient face to face, made the diagnosis, and the medical decision making was done by me. *My assessment and Findings: The patient arrives with facial rash as well as rash and genitalia medial thighs. She has received epinephrine steroids and antihistamines with no improvement after 2 hours in the ED. She states the rash is painful. She reports a similar rash previously responded well to steroids and acyclovir and reports her primary doctor told her it was zoster. Urticaria in this scenario considered less likely. Steroids started acyclovir started admission for ongoing monitoring potentially ID consult per discretion hospitalist service. d/ w Dr Luther. MDM Narrative Medical decision making narrative: 57-year-old female that presents to the ED for evaluation of allergic reaction. Patient was properly examined and was found to have signs and symptoms consistent appears to be allergic reaction. Unclear etiology at this time. Meds were ordered. Labs ordered. Meds include Benadryl, Pepcid, Solu-Medrol and epinephrine. Patient will be reassessed. Patient still symptomatic. Unclear etiology of the symptoms. My attending Dr. Benoit himself evaluated the patient and recommends admission because he is concerned that he may be shingles as some of the rash does appear to be herpetic in nature. Patient has a on both sides of the face and does cross the midline. My attending himself spoke with myself agrees to admission. Patient was started on azithromycin in addition to the medications for allergy. Medical Screen Exam Complete: Yes Emergency Medical Condition: Yes Differential Diagnosis Differential Diagnosis: Leg dermatitis versus allergic reaction versus hives versus insect bites Medical Records Medical records reviewed: Yes I reviewed the patient's medical records. Lab Data Lab results reviewed: Yes I reviewed the patient's lab results. Result diagrams: 04/14/18 08:50 04/14/18 08:50 Lab Results 04/13/18 04/13/18 04/14/18 Range/Units 16:17 16:17 08:50 WBC 5.7 7.6 (4.0-11.0) th/mm3 RBC 4.15 4.29 (4.00-5.30) mil/mm3 Hgb 10.8 L 10.5 L (11.6-15.3) gm/dL Hct 31.9 L 33.4 L (35.0-46.0) % MCV 76.9 L 78.0 L (80.0-100.0) fL MCH 25.9 L 24.5 L (27.0-34.0) pg MCHC 33.7 31.4 L (32.0-36.0) % RDW 16.5 16.6 (11.6-17.2) % Plt Count 304 323 (150-450) th/mm3 MPV 7.6 7.7 (7.0-11.0) fL Neut % (Auto) 52.4 84.1 H (16.0-70.0) % Lymph % (Auto) 35.5 14.8 (9.0-44.0) % Lincoln % (Auto) 8.9 H 0.9 (0.0-8.0) % Eos % (Auto) 2.4 0.0 (0.0-4.0) % Baso % (Auto) 0.8 0.2 (0.0-2.0) % Neut # (Auto) 3.0 6.4 (1.8-7.7) th/mm3 Lymph # (Auto) 2.0 1.1 (1.0-4.8) th/mm3 Lincoln # (Auto) 0.5 0.1 (0.0-0.9) th/mm3 Eos # (Auto) 0.1 0.0 (0.0-0.4) th/mm3 Baso # (Auto) 0.0 0.0 (0.0-0.2) th/mm3 WBC Differential . . Differential Comment Auto diff final Auto diff final Sodium 144 (136-145) meq/L Potassium 4.0 (3.5-5.1) meq/L Chloride 106 (98-107) meq/L Carbon Dioxide 29.6 (21.0-32.0) meq/L Anion Gap 8 (5-15) meq/L BUN 11 (7-18) mg/dL Creatinine 0.70 (0.50-1.00) mg/dL Estimated GFR 86 L (>89) mL/min Random Glucose 106 (74-106) mg/dL Calcium 8.4 L (8.5-10.1) mg/dL Total Bilirubin (0.2-1.0) mg/dL AST (15-37) U/L ALT (10-53) U/L Alkaline Phosphatase (45-117) U/L Total Protein (6.4-8.2) g/dL Albumin (3.4-5.0) g/dL 04/14/18 Range/Units 08:50 WBC (4.0-11.0) th/mm3 RBC (4.00-5.30) mil/mm3 Hgb (11.6-15.3) gm/dL Hct (35.0-46.0) % MCV (80.0-100.0) fL MCH (27.0-34.0) pg MCHC (32.0-36.0) % RDW (11.6-17.2) % Plt Count (150-450) th/mm3 MPV (7.0-11.0) fL Neut % (Auto) (16.0-70.0) % Lymph % (Auto) (9.0-44.0) % Lincoln % (Auto) (0.0-8.0) % Eos % (Auto) (0.0-4.0) % Baso % (Auto) (0.0-2.0) % Neut # (Auto) (1.8-7.7) th/mm3 Lymph # (Auto) (1.0-4.8) th/mm3 Lincoln # (Auto) (0.0-0.9) th/mm3 Eos # (Auto) (0.0-0.4) th/mm3 Baso # (Auto) (0.0-0.2) th/mm3 WBC Differential Differential Comment Sodium 140 (136-145) meq/L Potassium 3.4 L (3.5-5.1) meq/L Chloride 103 (98-107) meq/L Carbon Dioxide 25.5 (21.0-32.0) meq/L Anion Gap 12 (5-15) meq/L BUN 13 (7-18) mg/dL Creatinine 0.82 (0.50-1.00) mg/dL Estimated GFR 71 L (>89) mL/min Random Glucose 141 H (74-106) mg/dL Calcium 9.2 D (8.5-10.1) mg/dL Total Bilirubin 0.4 (0.2-1.0) mg/dL AST 17 (15-37) U/L ALT 20 (10-53) U/L Alkaline Phosphatase 98 (45-117) U/L Total Protein 7.3 (6.4-8.2) g/dL Albumin 3.6 (3.4-5.0) g/dL Imaging Data Radiologist's impression: Abdomen/Pelvis CT 04/13/18 00:00 CONCLUSION: 1. Uncomplicated sigmoid diverticula. 2. Otherwise negative CT abdomen/pelvis with contrast. Discharge Plan Discharge Disposition Patient Disposition: 30 Still Patient Discharge Condition Condition: Stable Discharge Order Discharge Orders: Discharge Order (Routine); Ordered 04/14/18 Ordered By: Jennifer Ambriz Discharge Details Anticipated Discharge Date: 04/14/18 Diagnosis: Shingles, Contact dermatitis Physicians Team ED Provider: Bronson Benoit ED Midlevel Provider: Ramu Art Primary Care Provider: UNKNOWN, Attending Provider: Yamileth Villeda Other Providers: Marina Coppola Status ED Status: Left Department Discharge Information Discharge Date/Time: 04/13/18 20:07
[2018-04-13 16:53] LABS: Baso % (Auto) 0.8 % (0.0-2.0); Eos # (Auto) 0.1 th/mm3 (0.0-0.4); Eos % (Auto) 2.4 % (0.0-4.0); Hematocrit 31.9 % (35.0-46.0); Hemoglobin 10.8 gm/dL (11.6-15.3); Lymph % (Auto) 35.5 % (9.0-44.0); Mean Corpuscular HGB Conc 33.7 % (32.0-36.0); Mean Corpuscular Hemoglobin 25.9 pg (27.0-34.0); Mean Corpuscular Volume 76.9 fL (80.0-100.0); Mean Platelet Volume 7.6 fL (7.0-11.0); Mono # (Auto) 0.5 th/mm3 (0.0-0.9); Mono % (Auto) 8.9 % (0.0-8.0); Neut % (Auto) 52.4 % (16.0-70.0); Platelet Count 304 th/mm3 (150-450); Red Blood Count 4.15 mil/mm3 (4.00-5.30); Red Cell Distribution Width 16.5 % (11.6-17.2); White Blood Count 5.7 th/mm3 (4.0-11.0)
[2018-04-13 17:18] LABS: Calcium 8.4 mg/dL (8.5-10.1); Carbon Dioxide 29.6 meq/L (21.0-32.0)
[2018-04-13] MEDS ORDERED: Acyclovir 800 MG Tablet PO ONE (18:07)
[2018-04-13] MEDS ORDERED: ACYCLOVIR IV.SIG ONE (18:12)
[2018-04-13] MEDS ORDERED: SODIUM CHLOR 0.9% IV.SIG ONE (18:12)
[2018-04-13] MEDS ORDERED: Bisacodyl 10 MG Supp RECTAL PRN (19:11)
[2018-04-13] MEDS ORDERED: Acetaminophen 325 MG Tablet PO PRN (19:11)
--- NOTE | 2018-04-13 19:12 | P.HPIM ---
History of Present Illness Primary Care Physician: UNKNOWN History of Present Illness: This is a 57-year-old female with a PMH of HTN, Migraine and Eczema who presented to the ER with possible allergic reaction. Patient reports acute onset of intensely pruritic rash on her face w/ progression, now involving neck , extremities and groin. No previous h/o similar symptoms. Denies new medications or changes to existing medications. Denies fever/chills. Recent travel to [place] approx 2wks ago, reports no complications. Taking Benadryl and Vistaril w/ no relief. On arrival, BP 193/92, HR 90, O2 sat 100% on RA, Afebrile. CBC unremarkable except for Hgb 10.8. Chemistry unremarkable. On exam, pt w/ pruritic rash, lesions crossing midline bilaterally. S/p Benadryl, Pepcid, Solu-Medrol, Epi and Lyndora w/ minimal relief. Of note, pt w/ complaints of abdominal pain, distention and vaginal bleeding after intercourse x2 wks, no previous eval. - Diagnosis (1) Vesicular rash (2) Pruritus (3) Abdominal pain Review of Systems PAST FAMILY HISTORY: Reviewed. No h/o DM or CAD All other systems reviewed negative except as stated in HPI PMFSH - History History Provided By: Patient - Medical History Medical History: Medical History (Last Reviewed 04/13/18 @ 16:30 by DIAN Sheridan) Eczema Hypertension Migraine Medical history unknown - Tobacco History Smoking Status: Former smoker - Alcohol History How Often Do You Have a Drink Containing Alcohol: 2 to 4 times a month - Substance Use History Substance History: No History of Abuse - Travel History Recent Travel in the [facility] Within the Last 8 Weeks: No Recent Travel Out of the Country Within the Last 8 Weeks: No - Immunization History Tetanus Immunization: <5 Years Medications and Allergies Active Medications: Active Medications Sodium Chloride (Ns Flush) 2 ml IV.FLUSH PRN PRN PRN Reason: FLUSH AFTER USING IV ACCESS Allergies Allergy/AdvReac Type Severity Reaction Status Date / Time Penicillins Allergy Unknown unknown Verified 04/13/18 15:50 Home Medications Medication Instructions Recorded Confirmed Type duloxetine [Cymbalta] 60 mg PO DAILY 04/13/18 04/13/18 History hydrochlorothiazide 25 mg PO DAILY 04/13/18 04/13/18 History lisinopril 40 mg PO DAILY 04/13/18 04/13/18 History topiramate [Topamax] 50 mg PO DAILY 04/13/18 04/13/18 History Exam Vital signs: Vital Signs 04/13/18 15:24 04/13/18 15:47 Temperature 97.7 F Pulse Rate 90 86 Respiratory Rate 20 18 Blood Pressure 193/92 H 185/87 H Pulse Oximetry 100 98 Intake & Output 04/13/18 04/13/18 04/14/18 06:59 18:59 06:59 Weight 69.4 kg Narrative: PE: GENERAL: Pleasant middle-aged white female in moderate distress due to intense pruritus and pain complaints. SKIN: Focused skin assessment warm and dry. Diffuse, pruritic, raised rash involving face, neck, extremities and groin, crosses midline, +vesicular. HEENT: PERRLA, EOMI. No scleral icterus or conjunctival pallor. No lid lag or facial droop. CARDIOVASCULAR: Regular rate and rhythm. No obvious murmurs to auscultation. No chest tenderness to palpation. RESPIRATORY: No obvious rhonchi or wheezing. Clear to auscultation. Breath sounds equal bilaterally. GASTROINTESTINAL: Abdomen soft, non-tender, nondistended. BS normal. MUSCULOSKELETAL: Extremities without clubbing, cyanosis, or edema. No obvious deformities. NEUROLOGICAL: Awake, alert and oriented x4. No focal neurologic deficits. Moving both upper and lower extremities spontaneously. PSYCHIATRIC: Appropriate mood and affect. Insight and judgment normal. Results - Labs CBC & Chem 7: 04/13/18 16:17 04/13/18 16:17 Labs: Short CBC 04/13/18 Range/Units 16:17 WBC 5.7 (4.0-11.0) th/mm3 Hgb 10.8 L (11.6-15.3) gm/dL Hct 31.9 L (35.0-46.0) % Plt Count 304 (150-450) th/mm3 BMP 04/13/18 16:17 Sodium 144 Potassium 4.0 Chloride 106 Carbon Dioxide 29.6 BUN 11 Creatinine 0.70 Calcium 8.4 L Caprini VTE Risk Assessment Caprini VTE Risk Assessment: No/Low Risk (score <= 1) Caprini Risk Assessment Model: Point Value = 1 Point Value = 2 Point Value = 3 Point Value = 5 Age 41-60 Minor surgery BMI > 25 kg/m2 Swollen legs Varicose veins or History of unexplained or recurrent spontaneous Oral contraceptives or hormone replacement Sepsis (< 1 month) Serious lung disease, including pneumonia (< 1 month) Abnormal pulmonary function Acute myocardial infarction Congestive heart failure (< 1 month) History of inflammatory bowel disease Medical patient at bed rest Age 61-74 Arthroscopic surgery Major open surgery (> 45 min) Laparoscopic surgery (> 45 min) Malignancy Confined to bed (> 72 hours) Immobilizing plaster cast Central venous access Age >= 75 History of VTE Family history of VTE Factor V Leiden Prothrombin 20337L Lupus anticoagulant Anticardiolipin antibodies Elevated serum homocysteine Heparin-induced thrombocytopenia Other congenital or acquired thrombophilia Stroke (< 1 month) Elective arthroplasty Hip, pelvis, or leg fracture Acute spinal cord injury (< 1 month) Prophylaxis Regimen: Total Risk Factor Score Risk Level Prophylaxis Regimen 0-1 Low Early ambulation 2 Moderate Order ONE of the following: *Sequential Compression Device (SCD) *Heparin 5000 units SQ BID 3-4 Higher Order ONE of the following medications: *Heparin 5000 units SQ TID *Enoxaparin/Lovenox 40 mg SQ daily (WT < 150 kg, CrCl > 30 mL/min) *Enoxaparin/Lovenox 30 mg SQ daily (WT < 150 kg, CrCl > 10-29 mL/min) *Enoxaparin/Lovenox 30 mg SQ BID (WT < 150 kg, CrCl > 30 mL/min) AND/OR *Sequential Compression Device (SCD) 5 or more Highest Order ONE of the following medications: *Heparin 5000 units SQ TID (Preferred with Epidurals) *Enoxaparin/Lovenox 40 mg SQ daily (WT < 150 kg, CrCl > 30 mL/min) *Enoxaparin/Lovenox 30 mg SQ daily (WT < 150 kg, CrCl > 10-29 mL/min) *Enoxaparin/Lovenox 30 mg SQ BID (WT < 150 kg, CrCl > 30 mL/min) AND *Sequential Compression Device (SCD) Assessment and Plan - Assessment (1) Vesicular rash Code(s): R23.8 - Other skin changes Status: Acute (2) Pruritus Code(s): L29.9 - Pruritus, unspecified Status: Acute (3) Abdominal pain Code(s): R10.9 - Unspecified abdominal pain Status: Acute - Plan A/P: 1. Vesicular Rash: Diffuse, raised, erythematous/vesicular rash involving face /neck/extremities and groin, intensely pruritic. Not dermatomal distribution and crosses midline, unlikely herpetic however does have vesicular involvement and significantly painful. S/p Acyclovir in ER, will continue for now. ? Allergic reaction but unclear, continue w/ Solu-Medrol, Pepcid, Benadryl. Consider ID Consult for further eval if no improvement. Will likely need outpatient Dermatology eval. Start Neurontin/Lyndora for pain control. 2. Pruritus: Continue Benadryl, Vistaril as needed. Add Mirtazapine if no improvement. 3. Abdominal Pain: notes abdominal pain, distention and vaginal bleeding, ? rash due to Paraneoplastic Syndrome, check U/a to eval for UTI/Hematuria, Check CT Abd/Pelvis for possible underlying mass, will need PAP. 4. DVT Prophylaxis: SCD/Teds 5. Social work for d/c planning as needed 6. Case discussed w/ ER physician at length, labs/records/imaging reviewed by me.
[2018-04-13] MEDS ORDERED: Morphine Sulfate Inj 2 MG/ML Vial IV.PUSH PRN (19:19)
--- NOTE | 2018-04-13 20:19 | CT ---
EXAM DATE: 04/13/2018 7:35 PM EDT AGE/SEX: 57 years / Female INDICATIONS: Abdominal pain. CLINICAL DATA: This is the patient's initial encounter. Patient reports that signs and symptoms have been present for 1 day and indicates a pain score of 6/10. MEDICAL/SURGICAL HISTORY: None. None. ORAL CONTRAST: No oral contrast ingested. RADIATION DOSE: 11.54 CTDI (mGy) COMPARISON: No prior exams available for comparison. TECHNIQUE: Multiple contiguous axial images were obtained through the abdomen and pelvis following b olus infusion of 97 ml Omnipaque 350 (iohexol) nonionic water-soluble contrast as a single exam dos e. No oral contrast ingested. Using automated exposure control and adjustment of the mA and/or kV ac cording to patient size, radiation dose was kept as low as reasonably achievable to obtain optimal di agnostic quality images. DICOM format image data is available electronically for review and comparis on. FINDINGS: Lower Lungs: The visualized lower lungs are clear. Liver: The liver has a homogeneous density without space-occupying lesion. There is no dilation of th e biliary tree. No calcified gallstones. Spleen: Homogeneous density without enlargement. Pancreas: Unremarkable without mass or calcification. Kidneys: Normal in size and shape. No evidence of mass or hydronephrosis. Adrenal Glands: Unremarkable. Aorta: The aorta and proximal iliac vessels are grossly unremarkable without aneurysmal dilation. Bowel/Mesentery: No dilated loops of small or large bowel. Multiple diverticula in the sigmoid colon without radiographic evidence of diverticulitis. Metallic suture adjacent to the cecum from presumed appendectomy. Abdominal Wall: Intact. Retroperitoneum: No evidence of adenopathy in the retrocrural, para-aortic, or deep pelvic regions. Bladder: Contours are smooth. Reproductive Organs: No abnormal masses or calcifications seen. Inguinal: The inguinal region is unremarkable without evidence of adenopathy. Bony Structures: Unremarkable. CONCLUSION: 1. Uncomplicated sigmoid diverticula. 2. Otherwise negative CT abdomen/pelvis with contrast. Electronically signed by: Gurmeet Beltran MD 04/13/2018 8:18 PM EDT
[2018-04-13] MEDS: Gabapentin 300 MG Capsule PO SCH (22:12)
[2018-04-13] MEDS: MethylPREDNISolone Sod Succinate Inj 40 MG/ML Vial IV.PUSH SCH (22:13)
[2018-04-13] MEDS: Senna/Docusate Sodium 8.6/50 MG Tablet PO SCH (22:15)
[2018-04-13] MEDS: Sod Chloride 0.9% Inj 1,000 ML IV.CONT SCH (23:33)
[2018-04-14] MEDS: Lisinopril 20 MG Tablet PO SCH ×2 (00:50→08:47)
[2018-04-14] MEDS: hydroCHLOROthiazide 25 MG Tablet PO SCH ×2 (00:51→08:48)
[2018-04-14] MEDS: MethylPREDNISolone Sod Succinate Inj 40 MG/ML Vial IV.PUSH SCH ×3 (03:23→15:21)
[2018-04-14 03:33] VITALS: RESP 20
[2018-04-14] MEDS: Sod Chloride 0.9% Inj 1,000 ML IV.CONT SCH ×2 (07:36→19:04)
[2018-04-14 08:20] VITALS: BP 154/80; PULSE 74; TEMP 98.3; O2SAT 98
[2018-04-14] MEDS ORDERED: Naloxone Inj 0.4 MG/ML Vial IV.PUSH PRN (08:29)
[2018-04-14] MEDS: Acyclovir 800 MG Tablet PO SCH ×2 (08:47→09:02)
[2018-04-14] MEDS: Senna/Docusate Sodium 8.6/50 MG Tablet PO SCH (08:48)
[2018-04-14] MEDS: Gabapentin 300 MG Capsule PO SCH ×3 (08:48→19:04)
[2018-04-14] MEDS ORDERED: Duloxetine 60 MG DR Capsule PO SCH (09:00)
[2018-04-14] MEDS ORDERED: Famotidine PF Inj 20 MG/2 ML Vial IV.PUSH SCH (09:00)
[2018-04-14] MEDS ORDERED: Topiramate 25 MG Tablet PO SCH (09:00)
[2018-04-14 09:16] LABS: Baso % (Auto) 0.2 % (0.0-2.0); Hematocrit 33.4 % (35.0-46.0); Hemoglobin 10.5 gm/dL (11.6-15.3); Lymph # (Auto) 1.1 th/mm3 (1.0-4.8); Lymph % (Auto) 14.8 % (9.0-44.0); Mean Corpuscular HGB Conc 31.4 % (32.0-36.0); Mean Corpuscular Hemoglobin 24.5 pg (27.0-34.0); Mean Platelet Volume 7.7 fL (7.0-11.0); Mono # (Auto) 0.1 th/mm3 (0.0-0.9); Mono % (Auto) 0.9 % (0.0-8.0); Neut # (Auto) 6.4 th/mm3 (1.8-7.7); Neut % (Auto) 84.1 % (16.0-70.0); Platelet Count 323 th/mm3 (150-450); Red Blood Count 4.29 mil/mm3 (4.00-5.30); Red Cell Distribution Width 16.6 % (11.6-17.2); White Blood Count 7.6 th/mm3 (4.0-11.0)
[2018-04-14 09:53] LABS: Alanine Aminotransferase 20 U/L (10-53); Albumin 3.6 g/dL (3.4-5.0); Anion Gap 12 meq/L (5-15); Aspartate Aminotransferase 17 U/L (15-37); Blood Urea Nitrogen 13 mg/dL (7-18); Calcium 9.2 mg/dL (8.5-10.1); Carbon Dioxide 25.5 meq/L (21.0-32.0); Chloride 103 meq/L (98-107); Glomerular Filtration Rate 71 mL/min (>89); Glucose,Random 141 mg/dL (74-106); Potassium 3.4 meq/L (3.5-5.1); Sodium 140 meq/L (136-145)
[2018-04-14 09:56] LABS: Alkaline Phosphatase 98 U/L (45-117); Total Protein 7.3 g/dL (6.4-8.2)
--- NOTE | 2018-04-14 11:07 | P.PN ---
Subjective Interval history: Follow-up for rash. Patient reports continued diffuse erythematous and pruritic rash throughout the face, neck, extremities, and groin/labia. Patient does report some improvement overnight, and denies any pustular or vesicular lesions. No active drainage. Some the lesions have started to dry up. Denies any fevers or chills. Denies any tongue/lip swelling, dysphasia/odynophagia, difficulty breathing, or chest pains. She denies any history of a similar rash , although does frequently get eczema breakouts. She denies any new medications. Denies any food allergies. She wants to go home. Physical Exam Vital signs: Vital Signs 04/13/18 15:24 04/13/18 15:47 04/13/18 19:28 Temperature 97.7 F Pulse Rate 90 86 79 Respiratory Rate 20 18 16 Blood Pressure 193/92 H 185/87 H 172/79 H Pulse Oximetry 100 98 97 04/14/18 00:00 04/14/18 03:32 04/14/18 08:01 Temperature 98.0 F 98.4 F Pulse Rate 85 68 66 Respiratory Rate 18 20 Blood Pressure 168/85 H 152/83 H Pulse Oximetry 96 97 04/14/18 08:17 Temperature 98.3 F Pulse Rate 74 Respiratory Rate 20 Blood Pressure 154/80 H Pulse Oximetry 98 Intake & Output 04/13/18 04/14/18 04/14/18 18:59 06:59 18:59 Intake Total 1706.7 / 1706.7 2440 / 2440 Balance 1706.7 / 1706.7 2440 / 2440 Weight 69.4 kg Intake: IV 266.7 / 266.7 1000 / 1000 NS Inj 1,000 ML @ 100 mls/hr IV 1000 / 1000 .CONT .Q10H [facility] Rx#:[id number] Zovirax Inj 835 MG In NS Inj 266.7 / 266.7 250 ML @ 266.7 mls/hr IV.SIG ONCE ONE Rx#:[id number] Oral 1440 / 1440 1440 / 1440 Other: # Voids 6 6 Date of Last Bowel Movement 04/13/18 Narrative: GENERAL: Well-nourished, well-developed middle-aged female patient in [facility]. SKIN: Warm and dry. Diffuse rash, with multiple erythema papules scattered throughout the face, neck, bilateral upper and lower extremities, and 2 on the inner left labia. No vesicles or pustules noted. HEENT: Normocephalic. Atraumatic. Pupils equal and round. Mucous membranes pink and moist. CARDIOVASCULAR: Regular rate and rhythm. No murmur appreciated. RESPIRATORY: No accessory muscle use. Clear to auscultation. Breath sounds equal bilaterally. GASTROINTESTINAL: Abdomen soft, non-tender, nondistended. Normoactive bowel sounds x4. MUSCULOSKELETAL: No obvious deformities. Extremities without clubbing, cyanosis , or edema. NEUROLOGICAL: Awake and alert. No obvious cranial nerve deficits. Motor grossly within normal limits. Moving all extremities spontaneously. Normal speech. PSYCHIATRIC: Appropriate mood and affect; insight and judgment normal. Results - Labs CBC & Chem 7: 04/14/18 08:50 04/14/18 08:50 Laboratory Results - last 24 hr 04/13/18 04/13/18 04/14/18 16:17 16:17 08:50 WBC 5.7 7.6 RBC 4.15 4.29 Hgb 10.8 L 10.5 L Hct 31.9 L 33.4 L MCV 76.9 L 78.0 L MCH 25.9 L 24.5 L MCHC 33.7 31.4 L RDW 16.5 16.6 Plt Count 304 323 MPV 7.6 7.7 Neut % (Auto) 52.4 84.1 H Lymph % (Auto) 35.5 14.8 [place] % (Auto) 8.9 H 0.9 Eos % (Auto) 2.4 0.0 Baso % (Auto) 0.8 0.2 Neut # (Auto) 3.0 6.4 Lymph # (Auto) 2.0 1.1 [place] # (Auto) 0.5 0.1 Eos # (Auto) 0.1 0.0 Baso # (Auto) 0.0 0.0 WBC Differential . . Differential Comment Auto diff final Auto diff final Sodium 144 Potassium 4.0 Chloride 106 Carbon Dioxide 29.6 Anion Gap 8 BUN 11 Creatinine 0.70 Estimated GFR 86 L Random Glucose 106 Calcium 8.4 L Total Bilirubin AST ALT Alkaline Phosphatase Total Protein Albumin 04/14/18 08:50 WBC RBC Hgb Hct MCV MCH MCHC RDW Plt Count MPV Neut % (Auto) Lymph % (Auto) [place] % (Auto) Eos % (Auto) Baso % (Auto) Neut # (Auto) Lymph # (Auto) [place] # (Auto) Eos # (Auto) Baso # (Auto) WBC Differential Differential Comment Sodium 140 Potassium 3.4 L Chloride 103 Carbon Dioxide 25.5 Anion Gap 12 BUN 13 Creatinine 0.82 Estimated GFR 71 L Random Glucose 141 H Calcium 9.2 D Total Bilirubin 0.4 AST 17 ALT 20 Alkaline Phosphatase 98 Total Protein 7.3 Albumin 3.6 - Imaging Impressions Abdomen/Pelvis CT 04/13/18 00:00 CONCLUSION: 1. Uncomplicated sigmoid diverticula. 2. Otherwise negative CT abdomen/pelvis with contrast. Assessment and Plan - Assessment (1) Vesicular rash Code(s): R23.8 - Other skin changes Status: Acute (2) Pruritus Code(s): L29.9 - Pruritus, unspecified Status: Acute (3) Abdominal pain Code(s): R10.9 - Unspecified abdominal pain Status: Acute - Plan 57-year-old female with a PMH of HTN, Migraine and Eczema who presented to the ER with possible allergic reaction. Patient reports acute onset of intensely pruritic rash on her face w/ progression, now involving neck, extremities and groin. Rash: Diffuse, erythematous papular rash involving face/neck/extremities and groin, intensely pruritic. -Not dermatomal distribution and crosses midline, unlikely herpetic although S/p Acyclovir, discontinued now per ID recommendations -? Allergic reaction but unclear -continue w/ Solu-Medrol, Pepcid, Benadryl. -Consult ID, not consistent herpetic rash, cleared for discharge, recommends outpatient f/up with dermatology if doesn't improve -Given Rx for prednisone, benadryl, zantac Pruritus: secondary to rash -Continue Benadryl, Vistaril as needed. -Calamine prn. Abdominal Pain: notes abdominal pain, distention and vaginal bleeding, ?rash due to Paraneoplastic Syndrome -CT Abd/Pelvis unremarkable -will need PAP. -Outpatient f/up DVT Prophylaxis: SCD/Teds Discharge Planning: Discharge patient to home Condition on discharge: Stable Regular Diet as tolerated Ad Niki activity Rx written: prednisone 20mg bid x5days, benadryl 25mg q6h x7days, zantac 150mg bid x7days, calamine lotion prn Follow-up with primary care physician and dermatology
--- NOTE | 2018-04-14 12:54 | P.CONID ---
History of Present Illness Service: Infectious Disease Consult date: 04/14/18 Requesting Physician: Marie Luther Primary Care Provider: UNKNOWN History of Present Illness: Patient seen and examined. Records reviewed. Patient is a 57-year-old female, brought into the hospital for further evaluation of her skin rash. She apparently has had on and off rash in her lower extremity mostly in her knee area and upper leg over the last several weeks. They are a little bit painful and itchy. They would come and go. The day prior to admission she started getting a similar rash in her face neck area and in her upper extremity. She has not really had any fever chills or sweats. Denies any other symptoms as far as respiratory GI or any urinary complaints. She has not been on any new medications. She has a dog and she has had the dog for years. Never been around any sick person or child with any rash. She was brought into the hospital, and she had complained that it might be an allergic reaction. Patient was given treatment for allergy and has received Benadryl, Pepcid, Solu-Medrol, and epinephrine. Some of the lesions apparently looked somewhat vesicular. Patient states that she also had a few rash in her vaginal area. She stated that she has had prior problem with herpes but this is not like the rash that she had in the past. She also has eczema and states this is usually in her hands. Infectious disease consultation has been requested to evaluate the patient with a rash. Review of Systems Constitutional: Denies chills, Denies fatigue, Denies fever(s), Denies headache( s), Denies night sweats Eyes: Denies discharge, Denies dry eyes Ears, Nose, Mouth, and Throat: Denies difficulty swallowing, Denies mouth lesions, Denies neck pain, Denies pain with swallowing, Denies sore throat Cardiovascular: Denies chest pain, Denies shortness of breath Respiratory: Denies chest congestion, Denies cough, Denies shortness of breath Gastrointestinal: Denies abdominal pain, Denies loose stools, Denies nausea, Denies pain with swallowing, Denies vomiting Genitourinary: Denies difficulty urinating Musculoskeletal: Denies joint pain, Denies joint swelling Skin/Breast: Reports rash Neurologic: Denies confusion, Denies memory loss PMFSH - History History Provided By: Patient - Medical History Medical History: Medical History (Last Reviewed 04/13/18 @ 16:30 by DIAN Sheridan) Eczema Hypertension Migraine Medical history unknown - Tobacco History Second Hand Smoke Exposure: No Tobacco Use In Past 30 Days: No Smoking Status: Never smoker - Alcohol History How Often Do You Have a Drink Containing Alcohol: Monthly or less - Substance Use History Substance History: No History of Abuse - Travel History Recent Travel in the [place] Within the Last 8 Weeks: No Recent Travel Out of the Country Within the Last 8 Weeks: No - Immunization History Tetanus Immunization: <5 Years Medications and Allergies Active Medications: Active Medications Acetaminophen (Tylenol) 650 mg PO Q4H PRN PRN Reason: headache/fever/pain1-4 Last Admin: 04/14/18 00:47 Dose: 650 mg Hydrocodone Bitart/Acetaminophen ([place]rell 7.5/325) 1 tab PO Q4H PRN PRN Reason: Pain Scale 8 To 10 Hydrocodone Bitart/Acetaminophen ([place]rell 5/325) 1 tab PO Q4H PRN PRN Reason: Pain Scale 5 to 7 Al Hydroxide/Mg Hydroxide (Milk Of Magnesia Liq) 30 ml PO Q12H PRN PRN Reason: Mild Constipation Bisacodyl (Dulcolax Supp) 10 mg RECTAL DAILY PRN PRN Reason: SEVERE CONSITIPATION Diphenhydramine HCl (Benadryl Inj) 25 mg IV.PUSH Q4H PRN PRN Reason: ITCHING Last Admin: 04/14/18 05:03 Dose: 25 mg Duloxetine HCl (Cymbalta) 60 mg PO DAILY [facility] Last Admin: 04/14/18 08:48 Dose: 60 mg Famotidine (Pepcid Pf Inj) 20 mg IV.PUSH Q12HR [facility] Last Admin: 04/14/18 08:51 Dose: 20 mg Gabapentin (Neurontin) 300 mg PO TID [facility] Last Admin: 04/14/18 08:48 Dose: 300 mg Hydrochlorothiazide (Hydrodiuril) 25 mg PO DAILY [facility] Last Admin: 04/14/18 08:48 Dose: 25 mg Sodium Chloride (Ns Inj) 1,000 mls @ 100 mls/hr IV.CONT .Q10H [facility] Last Infusion: 04/14/18 09:04 Dose: Infused Lactulose (Lactulose Liq) 30 ml PO DAILY PRN PRN Reason: SEVERE CONSITIPATION Lisinopril (Prinivil) 40 mg PO DAILY [facility] Last Admin: 04/14/18 08:47 Dose: 40 mg Methylprednisolone Sodium Succinate (Solumedrol Inj) 40 mg IV.PUSH Q6H [facility] Last Admin: 04/14/18 08:47 Dose: 40 mg Morphine Sulfate (Morphine Inj) 2 mg IV.PUSH Q4H PRN PRN Reason: BREAKTHROUGH PAIN Last Admin: 04/13/18 22:14 Dose: 2 mg Naloxone HCl (Narcan Inj) 0.4 mg IV.PUSH UNSCH PRN PRN Reason: SEE LABEL COMMENTS Ondansetron HCl (Zofran Inj) 4 mg IV.PUSH Q6H PRN PRN Reason: NAUSEA OR VOMITING Senna/Docusate Sodium (Ryann-Colace) 1 tab PO BID [facility] Last Admin: 04/14/18 08:48 Dose: 1 tab Sennosides (Senokot) 17.2 mg PO Q12H PRN PRN Reason: Moderate Constipation Sodium Chloride (Ns Flush) 2 ml IV.FLUSH PRN PRN PRN Reason: FLUSH AFTER USING IV ACCESS Topiramate (Topamax) 50 mg PO DAILY [facility] Last Admin: 04/14/18 08:48 Dose: 50 mg Allergies Allergy/AdvReac Type Severity Reaction Status Date / Time Penicillins Allergy Unknown unknown Verified 04/13/18 15:50 Home Medications Medication Instructions Recorded Confirmed Type duloxetine [Cymbalta] 60 mg PO DAILY 04/13/18 04/13/18 History hydrochlorothiazide 25 mg PO DAILY 04/13/18 04/13/18 History lisinopril 40 mg PO DAILY 04/13/18 04/13/18 History topiramate [Topamax] 50 mg PO DAILY 04/13/18 04/13/18 History Exam Vital signs: Vital Signs 04/13/18 15:24 04/13/18 15:47 04/13/18 19:28 Temperature 97.7 F Pulse Rate 90 86 79 Respiratory Rate 20 18 16 Blood Pressure 193/92 H 185/87 H 172/79 H Pulse Oximetry 100 98 97 04/14/18 00:00 04/14/18 03:32 04/14/18 08:01 Temperature 98.0 F 98.4 F Pulse Rate 85 68 66 Respiratory Rate 18 20 Blood Pressure 168/85 H 152/83 H Pulse Oximetry 96 97 04/14/18 08:17 Temperature 98.3 F Pulse Rate 74 Respiratory Rate 20 Blood Pressure 154/80 H Pulse Oximetry 98 Intake & Output 04/13/18 04/14/18 04/14/18 18:59 06:59 18:59 Intake Total 1706.7 / 1706.7 2440 / 2440 Balance 1706.7 / 1706.7 2440 / 2440 Weight 69.4 kg Intake: IV 266.7 / 266.7 1000 / 1000 NS Inj 1,000 ML @ 100 mls/hr IV 1000 / 1000 .CONT .Q10H [facility] Rx#:[id number] Zovirax Inj 835 MG In NS Inj 266.7 / 266.7 250 ML @ 266.7 mls/hr IV.SIG ONCE ONE Rx#:[id number] Oral 1440 / 1440 1440 / 1440 Other: # Voids 6 6 Date of Last Bowel Movement 04/13/18 Narrative: Physical Examination GENERAL: Patient is a well-nourished, well-developed female, awake and alert , not in respiratory distress. She does not look toxic appearing. SKIN: Cool and dry. Has pink papules scattered in her face, neck, UE and LE and a few in her labia. She does not have vesicular rash at the time of my exan. Has some eczematous lesions noted between her fingers and one on her L leg. HEAD: Atraumatic. Normocephalic. No temporal wasting, or tenderness. EYES: [place] conjunctiva. No petechia or hemorrhage. Pupils equal, round and reactive to light. Extraocular movements full and intact. No scleral icterus. No injection or drainage. EARS, NOSE AND THROAT: Nose without bleeding or purulent nasal discharge. No sinus tenderness. Mucous membranes pink and moist. No oral lesions noted. No exudate. No oral thrush. NECK: Trachea midline. Supple and not tender, no meningeal signs CARDIOVASCULAR: Regular rate and rhythm. No murmurs, rubs or gallops heard RESPIRATORY: Clear to auscultation. Breath sounds equal bilaterally. No rales , wheezing or rhonchi ABDOMEN: Soft, non-tender, nondistended. Bowel sounds present and normoactive. No guarding. No rebound. No organomegaly. EXTREMITIES: No clubbing, cyanosis, or edema.No joint effusion, has good ROM. No calf tenderness. Well perfused and warm. NEUROLOGICAL: Awake and alert. Cranial nerves grossly intact. Motor grossly within normal limits. PSYCHIATRIC: Normal affect, calm and cooperative. LINE: No evidence of infection Results - Labs CBC & Chem 7: 04/14/18 08:50 04/14/18 08:50 Labs: Laboratory Results - last 24 hr 04/13/18 04/13/18 04/14/18 16:17 16:17 08:50 WBC 5.7 7.6 RBC 4.15 4.29 Hgb 10.8 L 10.5 L Hct 31.9 L 33.4 L MCV 76.9 L 78.0 L MCH 25.9 L 24.5 L MCHC 33.7 31.4 L RDW 16.5 16.6 Plt Count 304 323 MPV 7.6 7.7 Neut % (Auto) 52.4 84.1 H Lymph % (Auto) 35.5 14.8 [place] % (Auto) 8.9 H 0.9 Eos % (Auto) 2.4 0.0 Baso % (Auto) 0.8 0.2 Neut # (Auto) 3.0 6.4 Lymph # (Auto) 2.0 1.1 [place] # (Auto) 0.5 0.1 Eos # (Auto) 0.1 0.0 Baso # (Auto) 0.0 0.0 WBC Differential . . Differential Comment Auto diff final Auto diff final Sodium 144 Potassium 4.0 Chloride 106 Carbon Dioxide 29.6 Anion Gap 8 BUN 11 Creatinine 0.70 Estimated GFR 86 L Random Glucose 106 Calcium 8.4 L Total Bilirubin AST ALT Alkaline Phosphatase Total Protein Albumin 04/14/18 08:50 WBC RBC Hgb Hct MCV MCH MCHC RDW Plt Count MPV Neut % (Auto) Lymph % (Auto) [place] % (Auto) Eos % (Auto) Baso % (Auto) Neut # (Auto) Lymph # (Auto) [place] # (Auto) Eos # (Auto) Baso # (Auto) WBC Differential Differential Comment Sodium 140 Potassium 3.4 L Chloride 103 Carbon Dioxide 25.5 Anion Gap 12 BUN 13 Creatinine 0.82 Estimated GFR 71 L Random Glucose 141 H Calcium 9.2 D Total Bilirubin 0.4 AST 17 ALT 20 Alkaline Phosphatase 98 Total Protein 7.3 Albumin 3.6 - Imaging Impressions Abdomen/Pelvis CT 04/13/18 00:00 CONCLUSION: 1. Uncomplicated sigmoid diverticula. 2. Otherwise negative CT abdomen/pelvis with contrast. Assessment and Plan - Plan Impression Rash, generalized, ?allergic - does not look herpetic Hx eczema Recommendation Does not need any Abx or antiviral Consider getting dermatologic followup as outpatient if does not improve She can be D/C from ID standpoint Thank you for this consultation D/W Kris BIGGS
== END 2018-04-14 15:52 | disposition home or self-care (01) ==
LOC: NEPC 15:21 → NEDA 15:21 → NEPHCDU 21:36 → N05 04-14 13:44
PROVIDERS: ADMIT Internal Medicine; ATTEND Internal Medicine